=== PATIENT | male | born 1935 | race Caucasian/White ===

== ENCOUNTER 2024-12-12 12:07 | Emergency (ER) | payer OTHER ==
--- OUTSIDE RECORDS SUMMARY | 2024-12-12 12:12 | XMS REPORT | Continuity of Care Document ---
Author Name Unknown Address [address] [place] [address] [facility] Address 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 Name Role Phone Kraig JARAMILLO, Melissa Primary Care Physician [phone] Yaima Harkins MD, Stewart Willson Attending Clinic janette Jessi Bettencourt MD Attending Clinician [phone] Jamel Chau MD Attending Clinician [phone] JAMEL CHAU Attending Clinician Jennifer Bettencourt MD, Jessi Roberts Admitting Clinician [phone] JESSI BETTENCOURT Admitting Clinician Unavailable Payers Payer Name Policy Type Policy Number Effective Date Expirati on Date Source [employer] MEDICARE PPO [id number] 1 00:00:00 [employer] MED[employer]ARE ADVANTAGE Medicare [id number] 2023 00:00:00 Problems Condition Name Condition Details Condition Category Status Onset Date Resolution Date Last Treatment Date Treating Clinician Comments Source Subdural hematoma Subdural hematoma Disease Active 12-03 00:00: 00 Delphine Emmanuel Social History Social Habit Start Date Stop Date Quantity Comments Source Gender identity Raghav Emmanuel Sexual orientation Yani Emmanuel History of Social function 2024-12-04 00:00:00 2024-12-04 00:00:00 Yusuf Emmanuel Smoking Status Start Date Stop Date Source Never smoked tobacco Delphine Emmanuel Medications Ordered Medication Name Filled Medication Name Start Date Stop Date Current Medication? Ordering Clinician Indication Dosage Frequency Signature (SIG) Comments Components Source docusate sodium (Colace) capsule 100 mg docusate sodium (Colace) capsule 100 mg 12-07 09:00: 00 Yes 112 100mg Q.5D 100 mg, Oral, 2 times daily, First dose on 12/07/24 at 0900 Delphine Emmnauel losartan (Cozaar) 25 MG tablet losartan (Cozaar) 25 MG tablet 12-07 00:00: 00 01-06 23:59 :00 No 25mg QD Take 1 tablet by mouth 1 time each day for 30 doses. Delphine Emmanuel finasteride (Proscar) 5 MG tablet finasteride (Proscar) 5 MG tablet 12-06 19:39: 29 12-06 00:00 :00 No 5mg QD Take 5 mg by mouth 1 time each day. Do not crush, chew, or split. Delphine Emmanuel sertraline (Zoloft) 25 MG tablet sertraline (Zoloft) 25 MG tablet 12-06 19:39: 29 12-06 00:00 :00 No 25mg QD Take 25 mg by mouth 1 time each day. Delphine Emmanuel aspirin (Vazalore) 81 MG capsule aspirin (Vazalore) 81 MG capsule 12-06 19:39: 29 12-06 00:00 :00 No 81mg QD Take 81 mg by mouth 1 time each day. Do not crush or chew. Delphine Emmanuel cholecalcif walt (Vitamin D-3) 50 MCG (1999 UT) tablet cholecalcif walt (Vitamin D-3) 50 MCG (1999 UT) tablet 12-06 19:39: 29 12-06 00:00 :00 No 1{tbl} QD Take 1 tablet by mouth 1 time each day. Delphine Emmanuel traZODone (Desyrel) 100 MG tablet traZODone (Desyrel) 100 MG tablet 12-06 19:39: 29 12-06 00:00 :00 No 100mg Take 100 mg by mouth at bedtime. Delphine Emmanuel tamsulosin (Flomax) 0.4 MG 24 hr capsule tamsulosin (Flomax) 0.4 MG 24 hr capsule 12-06 19:39: 26 Yes 1858 .4mg QD Take 0.4 mg by mouth 1 time each day. Delphine Emmanuel furosemide (Lasix) 20 MG tablet furosemide (Lasix) 20 MG tablet 12-06 19:39: 26 Yes 81 20mg QD Take 20 mg by mouth 1 time each day. Hold for SBP <100 or DBP <60 Delphine Emmanuel levETIRAcet am (Keppra) 750 MG tablet levETIRAcet am (Keppra) 750 MG tablet 12-06 19:39: 26 Yes 9 750mg Q.5D Take 750 mg by mouth in the morning and 750 mg in the evening. Delphine Emmanuel Venelex ointment Venelex ointment 12-06 17:00: 00 Yes Q.5D Apply externally , 2 times daily, First dose on Mon12/06/24 at 1700, -Sacrum - Cleanse: Secura Total Foam Body Cleanser, pat dry Apply Venelex (balsam jose/nora r oil) to wound bed No Allevyn's- No Diapers-NO EPC please-use green ellie pad for incontinen ce Cleanse/dr y/reapply - BID -incontine nce care Delphine Emmanuel levETIRAcet am (Keppra) tablet 500 mg levETIRAcet am (Keppra) tablet 500 mg 12-06 17:00: 00 12-11 16:59 :00 No 500mg Q.5D 500 mg, Oral, 2 times daily, First dose on Mon12/06/24 at 1700, For 10 doses Delphine Emmanuel bisacodyl (Dulcolax) EC tablet 10 mg bisacodyl (Dulcolax) EC tablet 10 mg 12-06 08:00: 00 12-06 08:22 :00 No 10mg 10 mg, Oral, Once, On Mon12/06/24 at 0800, For 1 dose, Do not give within 1 hour of antacids, milk, or dairy products. Do not crush, chew, or split. Delphine Emmanuel Balsam [place] Oil (Venelex) ointment Balsam [place] Oil (Venelex) ointment 12-06 00:00: 00 01-05 23:59 :00 No 911 1[in_us ] Q.5D Apply 1 inch topically in the morning and 1 inch in the evening. Delphine Emmanuel acetaminoph en (Tylenol) 325 MG tablet acetaminoph en (Tylenol) 325 MG tablet 12-06 00:00: 00 12-16 23:59 :00 No 650mg Q6H Take 2 tablets by mouth every 6 hours if needed for mild pain (1-3) for up to 10 days. Delphine Emmanuel levETIRAcet am (Keppra) 500 MG tablet levETIRAcet am (Keppra) 500 MG tablet 12-06 00:00: 00 12-06 00:00 :00 No 500mg Q.5D Take 1 tablet by mouth in the morning and 1 tablet in the evening. Do all this for 10 doses. Delphine Emmanuel levETIRAcet am (Keppra) injection 500 mg levETIRAcet am (Keppra) injection 500 mg 12-05 21:00: 00 12-06 14:48 :31 No 500mg Q.5D 500 mg, Intravenou s, Every 12 hours scheduled, First dose (after last modificati on) on Mon12/05/24 at 2100, For 10 doses, Administer over 3 minutes IV push for doses up to 1500 mg. Delphine Emmanuel polyethylen e glycol (PEG) 3350 (Miralax) packet 17 g polyethylen e glycol (PEG) 3350 (Miralax) packet 17 g 12-05 09:15: 00 Yes 17g Q.5D 17 g, Oral, 2 times daily, First dose on Mon12/05/24 at 0915, Dissolve 17 g in 120 to 240 mL (4 to 8 ounces) of beverage. Delphine Emmanuel losartan (Cozaar) tablet 25 mg losartan (Cozaar) tablet 25 mg 12-05 09:15: 00 01-04 08:59 :00 No 25mg QD 25 mg, Oral, Daily, First dose on Mon12/05/24 at 0915, For 30 days Delphine Emmanuel heparin injection 5,000 Units heparin injection 5,000 Units 12-05 00:00: 00 Yes 5000U Q8H 5,000 Units, Subcutaneo us, Every 8 hours, First dose on Mon12/05/24 at 0000 Delphine Giles Epic cefepime (Maxipime) 1 g in sodium chloride 0.9 % 100 mL IVPB-MB+ cefepime (Maxipime) 1 g in sodium chloride 0.9 % 100 mL IVPB-MB+ 12-04 23:00: 00 12-11 22:59 :00 No 1g Q12H 1 g, Intravenou s, at 25 mL/hr, Administer over 4 Hours, Every 12 hours, First dose on Mon12/04/24 at 2300, For 7 days, Mini-Bag Plus bag. Break seal and mix before use, as follows: For liquid drug vials, skip to step 2. 1. Hold bag with vial down. Squeeze solution into vial until half-full. Shake to suspend drug in solution. 2. Hold bag with vial upside down. Squeeze bag to force air into vial, then release to drain suspended drug from vial into bag. 3. Repeat above until vial is empty of drug and solution is thoroughly mixed. Ensure drug is completely dissolved. Do not remove drug vial. 4. Remove port protector, attach admin set per its instructio ns, then hang container from IV pole and prime set per directions . Do not use in series connection s. 5. Ensure the vial is empty of drug and in solution, then administer medication as ordered. Use within specified BUD., Suspected Indication (Select all that apply): Urinary Tract Infection, On hold since Mon12/05/2024 at 0908 until manually unheld Delphine Emmanuel ipratropium -albuterol (Duo-Neb) 0.5-2.5 mg/3 mL nebulizer solution 3 mL ipratropium -albuterol (Duo-Neb) 0.5-2.5 mg/3 mL nebulizer solution 3 mL 12-04 21:00: 00 Yes 3mL Q.25D 3 mL, Nebulizati on, Every 6 hours RT, First dose on Mon12/04/24 at 2100 Delphine Emmanuel hydrALAZINE injection 10 mg hydrALAZINE injection 10 mg 12-04 05:51: 21 Yes 10mg Q6H 10 mg, Intravenou s, Every 6 hours PRN, high blood pressure, SBP goal <150 mmhg, Starting on Mon12/04/24 at 0551, 2nd agent Delphine Emmanuel isosorbide mononitrate ER (Imdur) 30 MG 24 hr tablet isosorbide mononitrate ER (Imdur) 30 MG 24 hr tablet 12-04 00:00: 00 Yes 662 30mg QD Take 30 mg by mouth 1 time each day. Hold for SBP <100 or DBP <60Do not crush or chew. Delphine Emmanuel acetaminoph en (Tylenol) tablet 650 mg acetaminoph en (Tylenol) tablet 650 mg 12-03 21:09: 41 Yes 650mg Q6H 650 mg, Oral, Every 6 hours PRN, mild pain (1-3), Starting on Mon12/03/24 at 2109, Max acetaminop hen = 4000mg/day (4gm/day) Delphine Emmanuel levETIRAcet am (Keppra) injection 1,000 mg levETIRAcet am (Keppra) injection 1,000 mg 12-03 21:00: 00 12-05 09:03 :09 No 1000mg Q.5D 1,000 mg, Intravenou s, Every 12 hours scheduled, First dose (after last modificati on) on Mon12/03/24 at 2100, For 7 days, Administer over 3 minutes IV push for doses up to 1500 mg. Delphine Emmanuel sodium chloride 0.9 % infusion sodium chloride 0.9 % infusion 12-03 20:45: 00 12-04 08:49 :21 No 50mL/h 50 mL/hr, Intravenou s, Continuous , Starting on Mon12/03/24 at 2045 Delphine Emmanuel magnesium sulfate IVPB 2 g magnesium sulfate IVPB 2 g 12-03 20:43: 41 12-06 10:41 :43 No 2g 2 g, Intravenou s, Administer over 4 Hours, As needed, Abnormal Lab Result, FOR ICU USE ONLY, Starting on Mon12/03/24 at 2042, For magnesium 1.6 to 1.8 mg/dL: Replace with Mg Sulfate 2 grams IVPB over 4 hours x 1 dose. For magnesium 1.9 to 2.3 mg/dL(in CV surgery patients only): Replace with Mg Sulfate 2 grams IVPB over 4 hours X 1 dose> For magnesium </= 1.5 mg/dL: Replace with Mg Sulfate 2 grams IVPB over 4 hours X 2 doses. Notify MD if magnesium </= 1.1 mg/dL Recheck Magnesium level 2 hours after Magnesium replacemen t complete. Delphine Emmanuel sennosides (Senokot) tablet 8.6 mg sennosides (Senokot) tablet 8.6 mg 12-03 18:45: 00 Yes 1{tbl} Q.5D 8.6 mg (1 tablet), Oral, 2 times daily, First dose on Mon12/03/24 at 1845 Delphine Emmanuel sodium chloride (NS) 0.9 % flush 10 mL sodium chloride (NS) 0.9 % flush 10 mL 12-03 18:45: 00 Yes 10mL Q12H 10 mL, Intravenou s, Every 12 hours, First dose on Mon12/03/24 at 1845, Administer at least once every 12 hours Delphine Emmanuel famotidine (Pepcid) tablet 20 mg famotidine (Pepcid) tablet 20 mg 12-03 18:45: 00 12-05 07:31 :30 No 20mg QD 20 mg, Oral, Daily, First dose on Mon12/03/24 at 1845 Delphine Emmanuel insulin regular (HumuLIN R,NovoLIN R) injection 2-8 Units insulin regular (HumuLIN R,NovoLIN R) injection 2-8 Units 12-03 18:43: 01 Yes 2U Q6H 2-8 Units, Subcutaneo us, Every 6 hours PRN, high blood sugar, Starting on Mon12/03/24 at 1843, For BG < 70, follow hypoglycem ia protocol and notify ordering provider. If patient can eat or drink, give oral carbohydra te as ordered per hypoglycem ia protocol. If patient NPO, give dextrose 50 % IV as ordered per hypoglycem ia protocol. If NPO and no IV access, give glucagon IM as ordered per hypoglycem ia protocol. Check BG every 15 minutes and repeat treatment if continued BG < 80., Correction Insulin Dosing: (DO NOT CHANGE DEFAULT SELECTION/ VALUES): Starting, BG < 70 instructio ns: Follow Hypoglycem ia Orders, BG 70-149 instructio ns: No Dose Needed, BG 150-199: 2, BG 200-249: 4, BG 250-299: 6, BG >/= 300: 8, BG > 300 instructio ns: Contact Provider Delphine Giles Epic glucagon injection 1 mg glucagon injection 1 mg 12-03 18:42: 53 Yes 1mg 1 mg, Intramuscu lar, As needed, For BG < 70 mg/dL if no IV access and patient is either Unconsciou s, unable to swallow or npo, Starting on Mon12/03/24 at 1842, For BG < 70 mg/dL if no IV access and patient is either Unconsciou s, unable to swallow or npo and notify MD. Delphine Giles Epic dextrose 50 % solution 25 g dextrose 50 % solution 25 g 12-03 18:42: 53 Yes 25g 25 g, Intravenou s, As needed, other, if Blood Glucose </= 50 mg/dL, Starting on Mon12/03/24 at 1842, If BG </=50 mg/dL, give 50 mL of D50W IV push STAT and notify MD. Delphine Giles Epic dextrose 50 % solution 12.5 g dextrose 50 % solution 12.5 g 12-03 18:42: 53 Yes 12.5g 12.5 g, Intravenou s, As needed, low blood sugar, if Blood Glucose 51- 69 mg/dL, Starting on Mon12/03/24 at 1842, For BG 51-69 mg/dL and patient UNCONSCIOU S OR UNABLE TO SWALLOW OR NPO: Give 25 mL of D50W IV push and notify MD. Delphine Emmanuel ipratropium -albuterol (Duo-Neb) 0.5-2.5 mg/3 mL nebulizer solution 3 mL ipratropium -albuterol (Duo-Neb) 0.5-2.5 mg/3 mL nebulizer solution 3 mL 12-03 18:42: 05 Yes 3mL Q4H 3 mL, Nebulizati on, Every 4 hours PRN, wheezing, Starting on Mon12/03/24 at 1842 Delphine Emmanuel naloxone (Narcan) injection 0.04 mg naloxone (Narcan) injection 0.04 mg 12-03 18:42: 05 Yes .04mg 0.04 mg, Intravenou s, As needed, opioid reversal, every 2 mins PRN for Narcotic Reversal, Starting on Mon12/03/24 at 1842, For 8 doses, Give up to 8 doses of 0.04 mg as needed to reverse over sedation. Keep available for immediate use. Call ordering physician STAT. (Dilute 0.4 mg/mL in 9 mL of saline) Delphine Emmanuel ondansetron (Zofran) injection 4 mg ondansetron (Zofran) injection 4 mg 12-03 18:42: 05 Yes 4mg Q6H 4 mg, Intravenou s, Every 6 hours PRN, nausea, vomiting, Starting on Mon12/03/24 at 1842 Delphine Emmanuel labetalol injection 10 mg labetalol injection 10 mg 12-03 18:42: 05 Yes 1317 10mg 10 mg, Intravenou s, Every 15 min PRN, high blood pressure, Starting on Mon12/03/24 at 1842, Administer IV Push over 2 minutes. May give up to 3 consecutiv e doses. If goal BP is not achieved after 3 consecutiv e doses, Notify MD. (Refer to SBP goal documented in Vital Sign/BP Parameters ? order). Recheck Vitals Q15 minutes x 4. Do not administer if HR < 55 BPM., Indication s: Cerebral Hemorrhage Delphine Emmanuel levETIRAcet am (Keppra) injection 500 mg levETIRAcet am (Keppra) injection 500 mg 12-03 17:55: 00 Yes 500mg 500 mg, Intravenou s, Once, On Mon12/03/24 at 1755, For 1 dose, Administer over 3 minutes IV push for doses up to 1500 mg. Delphine Giles Epic iohexol (OMNIPaque) 350 MG/ML injection 100 mL iohexol (OMNIPaque) 350 MG/ML injection 100 mL 12-03 17:16: 11 12-03 17:16 :00 No 100mL 100 mL, Intravenou s, Once in imaging, Starting on Mon12/03/24 at 1716, For 1 dose Delphine Giles Epic sodium chloride (NS) 0.9 % flush 10 mL sodium chloride (NS) 0.9 % flush 10 mL 12-03 17:13: 34 Yes 10mL [Order 1 Start] Name: Insert peripheral IV Signed Summary: Once, On Mon12/03/24 at 1714, For 1 occurrence [Order 1 End] [Order 2 Start] Name: Saline lock IV Signed Summary: Once, On Mon12/03/24 at 1714, For 1 occurrence [Order 2 End] [Order 3 Start] Name: sodium chloride (NS) 0.9 % flush 10 mL Signed Summary: 10 mL, Intravenou s, As needed, line care, Starting on Mon12/03/24 at 1713 [Order 3 End] Delphine Giles Epic sodium chloride (NS) 0.9 % flush 10 mL sodium chloride (NS) 0.9 % flush 10 mL 12-03 17:13: 34 12-06 07:51 :49 No 10mL 10 mL, Intravenou s, As needed, line care, Starting on Mon12/03/24 at 1713 Delphine Giles Epic iohexol (OMNIPaque) 350 MG/ML injection 60 mL iohexol (OMNIPaque) 350 MG/ML injection 60 mL 12-03 17:05: 06 Yes 60mL 60 mL, Intravenou s, Once in imaging, Starting on Mon12/03/24 at 1705, For 1 dose Delphine Giles Epic metoprolol tartrate (Lopressor) 25 MG tablet metoprolol tartrate (Lopressor) 25 MG tablet 12-03 00:00: 00 Yes 87 25mg Q.5D Take 25 mg by mouth in the morning and 25 mg in the evening. Hold for SBP <100 or DBP and or HR <60. [facility] atorvastati n (Lipitor) 40 MG tablet atorvastati n (Lipitor) 40 MG tablet 12-03 00:00: 00 Yes 1779 40mg Take 40 mg by mouth at bedtime. [facility] nitrofurant oin, macrocrysta l-monohydra te, (Macrobid) 100 MG capsule nitrofurant oin, macrocrysta l-monohydra te, (Macrobid) 100 MG capsule 12-03 00:00: 00 12-06 00:00 :00 No 100mg Q.5D Take 100 mg by mouth in the morning and 100 mg in the evening. [facility] ibuprofen 600 MG tablet ibuprofen 600 MG tablet 12-02 00:00: 00 12-06 00:00 :00 No 600mg Q6H Take 600 mg by mouth in the morning and 600 mg at noon and 600 mg in the evening and 600 mg before bedtime. Alternate with Tylenol. [facility] acetaminoph en (Tylenol) 325 MG tablet acetaminoph en (Tylenol) 325 MG tablet 12-02 00:00: 00 12-06 00:00 :00 No 2{tbl} Q6H Take 2 tablets by mouth in the morning and 2 tablets at noon and 2 tablets in the evening and 2 tablets before bedtime. Alternate with Ibuprofen. [facility] Vital Signs Vital Name Observation Time Observation Value Comments S ource Respiratory rate 2024-12-06 17:30:00 22 /min [facility] Systolic blood pressure 2024-12-06 17:30:00 165 mm[Hg] [facility] Diastolic blood pressure 2024-12-06 17:30:00 72 mm[Hg] [facility] Heart rate 2024-12-06 17:30:00 72 /min [facility] Body temperature 2024-12-06 12:39:07 36.94 Alexus [facility] Oxygen saturation in Arterial blood by Pulse oximetry 2024-12-06 08:30:00 96 /min [facility] Her caceres [facility] Body weight 2024-12-05 14:18:00 85.3 kg Raghav kate [facility] BMI 2024-12-05 14:18:00 26.24 kg/m2 Raghav [facility] Body height 2024-12-05 14:18:00 180.3 cm Raghav [facility] Respiratory rate 2024-12-06 17:30:00 22 /min [facility] Systolic blood pressure 2024-12-06 17:30:00 165 mm[Hg] [facility] Diastolic blood pressure 2024-12-06 17:30:00 72 mm[Hg] [facility] Heart rate 2024-12-06 17:30:00 72 /min [facility] Body temperature 2024-12-06 12:39:07 36.94 Alxeus [facility] Oxygen saturation in Arterial blood by Pulse oximetry 2024-12-06 08:30:00 96 /min [facility] Her caceres [facility] Body weight 2024-12-05 14:18:00 85.3 [facility] 2024-12-05 14:18:00 26.24 kg/m2 Raghav [facility] Body height 2024-12-05 14:18:00 180.3 cm [facility] Procedures Procedure Date / Time Performed Performing Clinician Source UA WITH CULTURE IF INDICATED 2024-12-06 12:29:00 Santana Flaherty [facility] COMPREHENSIVE METABOLIC PANEL 2024-12-06 01:35:00 Thu Davenport [facility] COMPLETE BLOOD COUNT W/DIFF AND PLATELET 2024-12-06 01:35:00 Thu [place] Mattie [facility] COMPLETE BLOOD COUNT 2024-12-06 01:35:00 Thu Dav[place]port [facility] AUTOMATED DIFFERENTIAL 2024-12-06 01:35:00 Thu [place] Mattie [facility] TRANSTHORACIC ECHO (TTE) COMPLETE 2024-12-05 15:10:00 Kathleen Ivory [facility] POC GLUCOSE UNSOLICITED RESULTS 2024-12-05 07:40:00 Jessi Bettencourt [facility] COMPREHENSIVE METABOLIC PANEL 2024-12-05 00:27:00 Thu [place] [facility] MAGNESIUM LEVEL 2024-12-05 00:27:00 Latisha Saxena [facility] PHOSPHORUS LEVEL 2024-12-05 00:27:00 Estefani Saxena [facility] COMPLETE BLOOD COUNT W/DIFF AND PLATELET 2024-12-05 00:27:00 [facility]LO[facility] 2024-12-05 00:27:00 Thu [place] [facility] AUTOMATED DIFFERENTIAL 2024-12-05 00:27:00 Thu [place] Mattie [facility] UA with culture if indicated 2024-12-05 00:00:00 [facility] XR CHEST 1 VIEW 2024-12-04 21:57:00 [facility] POC GLUCOSE UNSOLICITED RESULTS 2024-12-04 13:05:00 Jessi Bettencourt [facility] THROMBOELASTOGRAPH RAPID 2024-12-04 12:54:00 Corry rnipragada, Rohit Yousif [facility] ADE AURIS FUNGAL CULTURE SURVEILLANCE 2024-12-04 12:53:00 Corryrnipraggrupo, Rohit Yousif [facility] WOUND OSTOMY EVAL AND TREAT 2024-12-04 11:05:12 Jessi Milner ms [facility] POC GLUCOSE UNSOLICITED RESULTS 2024-12-04 08:15:00 Jessi Bettencourt [facility] POC GLUCOSE UNSOLICITED RESULTS 2024-12-04 01:02:00 Jessi Bettencourt [facility] CALCIUM LEVEL IONIZED WHOLE BLOOD 2024-12-04 01:01:00 Danny Sax[facility]achanning home [facility] HEMOGLOBIN A1C 2024-12-04 00:50:00 Latisha Saxenaa [facility] COMPLETE BLOOD COUNT W/DIFF AND PLATELET 2024-12-04 00:49:00 Thu [place] [facility] COMPLETE BLOOD COUNT 2024-12-04 00:49:00 Issac, Thu [facility] AUTOMATED DIFFERENTIAL 2024-12-04 00:49:00 Thu [place] [facility] BASIC METABOLIC PANEL 2024-12-04 00:45:00 Sonia Saxenabassem [facility] MAGNESIUM LEVEL 2024-12-04 00:45:00 Latisha Saxena [facility] PHOSPHORUS LEVEL 2024-12-04 00:45:00 SaxenaEstefania [facility] THYROID STIMULATING HORMONE W/ REFLEX FREE T4 2024-12-04 00:45:00 Saxena, Soniakamronminda [facility] PT AND PTT 2024-12-04 00:45:00 Teofilo [place] [facility] CT BRAIN WO IV CONTRAST 2024-12-03 23:33:10 Eagle Patton [facility] POC GLUCOSE UNSOLICITED RESULTS 2024-12-03 22:24:00 Jessi Bettencourt [facility] HEPATIC FUNCTION PANEL 2024-12-03 21:55:00 Colleen s, Soniazstefanominda [facility] HEMOGLOBIN A1C 2024-12-03 21:55:00 Saxena, Estefanijamison rinaldia [facility] TROPONIN I HIGH SENSITIVITY (SINGLE ORDER) 2024-12-03 21:55:00 Saxena, Franciscominda [facility] ECG 12-LEAD 2024-12-03 18:10:00 Camila Peters [facility] BASIC METABOLIC PANEL 2024-12-03 18:07:00 Ynes Peters [facility] HEPATIC FUNCTION PANEL 2024-12-03 18:07:00 Colleen s, Soniazviminda [facility] CREATINE KINASE (CK TOTAL) 2024-12-03 18:07:00 Camila Peters [facility] BLOOD GAS, VENOUS 2024-12-03 18:07:00 Camila Peters [facility] COMPLETE BLOOD COUNT W/DIFF AND PLATELET 2024-12-03 18:07:00 Camila Peters [facility] PROTIME-INR 2024-12-03 18:07:00 Camila Peters [facility] PTT 2024-12-03 18:07:00 Camila Peters [facility] TROPONIN I HIGH SENSITIVITY (SINGLE ORDER) 2024-12-03 18:07:00 Hemanth Franciscomilly Clancy [facility] THROMBOELASTOGRAPH RAPID 2024-12-03 18:07:00 Liam judysae Eagle Pichardo [facility] COMPLETE BLOOD COUNT 2024-12-03 18:07:00 Jyothi Peters [facility] AUTOMATED DIFFERENTIAL 2024-12-03 18:07:00 Demetrio Peters [facility] XR CHEST 1 VIEW 2024-12-03 17:46:08 Camila Peters [facility] CT BRAIN WO IV CONTRAST 2024-12-03 17:14:28 Raquel Mitchell [facility] CT ANGIOGRAM BRAIN NECK STROKE 2024-12-03 17:14:28 Troy Griffin [facility] POC GLUCOSE UNSOLICITED RESULTS 2024-12-03 16:54:00 Stewart Barreto [facility] ABORh Blood Type and Antibody Screen 2024-12-03 00:00:00 [facility] Comprehensive Metabolic Panel [facility] Complete Blood Count w/Diff and Platelet [facility] Ade Auris Fungal Culture Surveillance [facility] Plan of Care Planned Activity Planned Date Details Comments Source Procedure 2025-01-02 00:00:00 POCT Glucose [facility] Encounters Start Date/Time End Date/Time Encounter Type Admission Type Attending [facility] Care Facility Care Department Encounter ID Source 2024-12-17 12:30:00 2024-12-17 12:30:00 Outpatient [facility] [id number] [facility] 2024-12-03 16:59:00 2024-12-06 18:00:00 Hospital Encounter Stewart Barreto John R Torres, Luis Francisco [facility] [id number] [facility] 2024-12-03 16:59:00 2024-12-06 18:00:00 Inpatient Emergency JAMEL CHAU [facility] General Medicine [id number] [facility] Results Test Description Test Time Test Comments Results Result Co mments Source [facility] 12 [id number] 17:26:13* Test Item Value Reference Range Interpretation Comme nts Ventricular Rate (test code = 7684750090) BPM Atrial Rate (test code = 3092519766) BPM NC Interval (test code = 1409681128) 138 ms QRS Duration (test code = 5863681146) 84 ms QT/QTc (test code = 6831681634) 436 ms QTc Calculation (test code = 2312770427) 436 ms [place] (test code = 5262982415) degrees [place] (test code = 9384739592) degrees [place] (test code = 6136659892) degrees IMP (test code = IMP) PXN (test code = PXN) [facility] [id number] 11:41:56* Test Item Value Reference Range Interpretation Comme nts POC Glu (test code = 6801111831) 112 mg/dL 70-99 H POC Performing Location (sondra t code = 9326755741) J7 NSICU Lab Interpretation (test cod e = 74287-7) Abnormal [facility] [id number] 21:25:04* Test Item Value Reference Range Interpretation Comme nts POC Glu (test code = 6345679531) 89 mg/dL 70-99 POC Performing Location (sondra t code = 3623738759) J5 NEURO [facility] [id number] 08:26:11* Test Item Value Reference Range Interpretation Comme nts POC Glu (test code = 1499718735) 119 mg/dL 70-99 H POC Performing Location (sondra t code = 9302603770) LAB Lab Interpretation (test cod e = 35963-1) Abnormal [facility]2025-04-23 01:04:32* Test Item Value Reference Range Interpretation Comme nts POC Glu (test code = 3030390038) 118 mg/dL 70-99 H POC Performing Location (sondra t code = 7574562367) J7 NSICU Lab Interpretation (test cod e = 62394-9) Abnormal [facility] [id number] 22:25:24* Test Item Value Reference Range Interpretation Comme nts POC Glu (test code = 9392032703) 120 mg/dL 70-99 H POC Performing Location (sondra t code = 9391602054) J7 NSICU Lab Interpretation (test cod e = 65718-3) Abnormal [facility] [id number] 16:56:14* Test Item Value Reference Range Interpretation Comme nts POC Glu (test code = 3327668507) 117 mg/dL 70-99 H POC Performing Location (sondra t code = 8035968330) H1 ER Lab Interpretation (test cod e = 11837-4) Abnormal [facility] Consult Notes Date/Time Note Provider Source 2024-12-04 14:11:51 Neurology Consults Progress Note Interim Events NAEON. Past Medical History He has a past medical history of COPD (chronic obstructive pulmonary disease) ([facility]) and SDH (subdural hematoma) ([facility]) (11/29/2024). Surgical History He has no past surgical history on file. Social History He reports that he has never smoked. He does not have any smokeless tobacco history on file. No history on file for alcohol use and drug use. Allergies Patient has no known allergies. Medications No medications prior to admission. Review of Systems Neurological Exam Physical Exam General: well nourished HEENT: NCAT, anicteric sclera, posterior pharynx clear, mucus membranes moist CV: regular rate, intact peripheral pulses Pulm: breathing comfortably, no wheezing, symmetric chest expansion Abd: soft, non-tender, non-distended Ext: skin clear, no rashes, no edema Neuro Exam: A&Ox2 (self, place), good concentration; Language: intact fluency, comprehension, naming, and repetition Speech: no dysarthria CN: PERRL, 3 mm BL, EOMI, no nystagmus, full VF; no facial asymmetry, facial sensation intact; auditory acuity intact; tongue midline, palate elevates symmetrically : Motor: Antigravity with no drift in all extremities Sensory: Intact to light touch equally on both sides, no extinction Coordination: no dysmetria on FTN or HTS bilaterally Gait: deferred Last Recorded Vitals Blood pressure (!) 166/68, pulse 74, temperature 36.4 ?C (97.5 ?F), temperature source Axillary, resp. rate 20, height 1.803 m (5' 11"), weight 85.3 kg (188 lb 0.8 oz), SpO2 97%. Assessment & Plan Subdural hematoma (HCC) Moderate malnutrition (CMS/HCC) (HCC) Oskar Mendoza is an 89yo male with pmh of CAD, COPD, Afin not on Eliqiuis, and recent subdural hematoma for which he was hospitalized at [facility] and discharged yesterday. He presented as a code stroke for left sided weakness and left facial droop. On arrival NIH of 2 for age/month, otherwise exam normal. CT w/ hyperattenuating right holohemispheric subdural hematoma and CTA w/no LVO. TNK deferred given hematoma. IAT deferred as no LVO. NSGY was consulted given concern for acute on chronic hematoma. No concern for acute ischemic stroke at this time. Patient has returned to baseline at this point. Recommendations: -No EEG necessary at this time -Keppra dosing per primary team Patient seen with attending Dr. Card. Neurology will sign off at this time. Nan Martinez MD Psychiatry PGY-1 Cosigned by Graham Card MD at 12/04/2024 6:27 PM CDT Associated attestation - Graham Card MD - 12/04/2024 6:27 PM CDT I have reviewed the documented history, ROS, physical exam, and decision making and agree. See my attestation to the consult note dated 12/03/24. Graham Card MD Psychiatry [facility] 2024-12-04 13:30:00 Spiritual Care Subjective Milk Receiver provided compassionate presence. Patient's Jexlizja-gw-Zcr and Friend were at bedside. Yyurtimg-sw-Rwr requested prayer (for peace), which Milk Receiver provided. Yolkjnlk-yx-Xga expressed gratitude to Milk Receiver for visit and support. Milk Receiver provided associate media planner education and encouraged reaching out if additional emotional and/or spiritual support was needed. Milk Receiver then departed with a word of blessing and assurance of continued support. Reason For Visit Care Recipient: Family Time spent: 15 minutes Reason for Visit: Admission request Interventions Relationship Building Interventions: Provided compassionate presence, Listened with empathy Exploration Interventions: Explored emotional needs and resources, Explored spiritual needs and resources Empowerment Interventions: Provided associate media planner education Ritual Interventions: Provided prayer Outcomes Expressed: Gratitude Expressed gratitude: Observed [place] connected with the transcendent: Observed Identified: Hopes Idenitifed hopes: Observed Assessment Spiritual Needs: Seeks peace Spiritual Resources: Marissa/trust Relational Resources: Family Plan Follow-up: No follow-up warranted at this time [facility] Pastoral Care [facility] 2024-12-04 10:50:00 Spiritual Care Subjective Milk Receiver attempted visit. However, Patient was unavailable. Patient's Doctor was just outside of the room. Milk Receiver visited with Doctor. Patient had a daughter and son who had visited, but had not seen them since the previous day. Candy Attendant services will be available for emotional and spiritual support. Call [phone]. Reason For Visit Care Recipient: Patient not available Time spent: Other (Comment) (5 minutes) Reason for Visit: Admission request [facility] 2024-12-04 07:19:30 Associated Order(s): IP SCREENING REFERRAL TO NUTRITION SERVICES NUTRITION ASSESSMENT - ADULT Unit: NSICU Reason for RD Encounter: Screening Reason : Pressure injury Findings Nutrition Diagnosis: Nutrition Diagnosis: Inadequate oral intake related to recent surgery and decreased ability to consume sufficient energy as evidenced by recent diet advancement. *Malnutrition Diagnosis: Moderate malnutrition (at minimum as exam/nutritional hx limited) Related To: Chronic illness As Evidenced By: Mild muscle loss, Mild fat loss Interventions and Recommendation: PO diet as tolerated. If meal intakes <50-70%, may consider adding oral supplement to assist nutritional intakes. If warranted, consider WC consultation for noted PI. If SII or greater is confirmed- add Christiano BID to assist with wound healing. Consider adding miralax to bowel regimen if warranted. NUTRITION RISK: Moderate, in 5-7 days Next Date for Nutrition Services Follow Up: 12/11/24 Communication : RN Primary team Rounded with multidisciplinary team Current Nutrition: Dietary Orders (From admission, onward) Start Ordered 12/04/24 0804 Adult Diet Regular Diet effective now Question: Diet type Answer: Regular 12/04/24 0803 Orderered Tube Feeds and Supplements Medication Dose Route Frequency Provider Last Rate Last Admin None PO/EN/PN Intakes: No data found. Nutrition Visit Information: 12/04- on visit, pt woke with name call. Able to respond to stating he is doing well but then fell back asleep and couldn't wake for further nutrition interview. Observed mild wasting in upper extremities. Limited/no other wt hx per chart review to assess possible changes endorsed. Noted pt did transfer from ID. No BM since admit but <24 hr admission. Only on senna bowel regimen. Initially pt was NPO this am with failing bedside nursing swallow. TIRE DESIGN ENGINEER consulted but later passed repeat bedside swallow, diet advanced to regular. PI documented to gluteal fold (Stage 1- Blanchable erythema/red). No WC eval /consult in place. Refer to recs above. Anthropometrics: Height: 180.3 cm (5' 11") Height Method: (per chart review) Weight: 85.3 kg, 188 lbs Weight Method: Bed scale Body mass index is 26.23 kg/m?. Cushman body weight: 75.3 kg (166 lb 0.1 oz) Adjusted ideal body weight: 79.3 kg (174 lb 13.2 oz) Wt Readings from Last 10 Encounters: 12/03/24 85.3 kg (188 lb 0.8 oz) Per chart review ED encounter: 11/28/24- 187 lbs Estimated Nutrition Needs: Calculated Energy Needs Using Equations Height: 1.803 m (5' 11") Weight Used for Equation Calculations: 78.2 kg (172 lb 6.4 oz) Energy Equation Used: Rule of thumb (kcal/kg) Energy Lower Range: 25 (kcal/kg) Energy Upper Range: 30 (kcal/day) Energy Needs Lower Range: 1955 kcal/day (kcal/day) Energy Needs Upper Range: 2346 kcal/day Temp: 36.5 ?C (97.7 ?F) Estimated Protein Needs (g/kg) Protein Lower Range: 1.2 (g/kg) Protein Upper Range: 1.5 (g/day) Protein Lower Range: 94 g/day (g/day) Protein Upper Range: 117 g/day Fluid Needs Fluid Needs Method: Or per MD (mL/kg) Fluid Needs: 25 (mL/day) Fluid Needs (Calculated): 1955 mL/day Nutrition Physical Findings per clinical safety specialist: Orientation Level: Disoriented to time Gastrointestinal (WDL): X Abdomen Inspection: Soft; Flat Abdominal Tenderness: No guarding Bowel Sounds: All quadrants Bowel Sounds (All Quadrants): Active LUE: Full movement RUE: Full movement LLE: Full movement RLE: Full movement Wound 12/03/24 Other (Comments) Right Eye (Active) Wound 12/03/24 Pressure Injury Bilateral Gluteal fold (Active) Nutrition Focused Physical Exam - Muscles and Fat: Assessment of Muscle Status Date Assessed: 12/04/24 (limited) Episcopalian Region: Slts-al-ewygpbbm deficit: Slight depression Clavicle Bone Region: Xtuj-ym-kfyimlwf deficit: More prominent clavicle bone, less prominent muscle when palpated Assessment of Fat Status Date Assessed: 12/04/24 (limited) Orbital Region: Sdsv-lr-vqjoxftz deficit: Somewhat hollow look, slightly dark circles Cheek Region (Buccal Fat Pads): Gxjq-pf-sdtkbbyi deficit: Slight depression, somewhat sunken appearance, flat cheeks / Decrease in bounce back of fat pads Basic Information: Admitting diagnosis: Subdural hematoma (HCC) [S06.5XAA] Clinical course: 89 y.o. male with PMH of CABG 5 years ago, CAD, COPD, Afib not on Eliqiuis, and recent subdural hematoma for which he was hospitalized at [facility] and discharged (12/02) , who presented on 12/03/2024 for left sided weakness and left facial droop that was noted at his nursing facility. 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 On EMS arrival BP of 118 and glucose of 130. OSH patient conversive but slow to respond. NIH of 2 for answering month and age incorrectly. Otherwise no deficits on exam. CT with A hyperattenuating right holohemispheric subdural hematoma measuring up to 9mm thick and causing partial sulcal/ventricular effacement. CTA w/ no large vesseel occlusion, medium vessel occlusion, or severe narrowing in the head or neck.. NSGY consulted for surgical management. Admitted to NSICU for neuro monitoring and management. Medications: famotidine, 20 mg, Oral, Daily [START ON 12/05/2024] heparin, 5,000 Units, Subcutaneous, q8h iohexol, 60 mL, Intravenous, Once in imaging levETIRAcetam, 1,000 mg, Intravenous, q12h LEE ANN sennosides, 1 tablet, Oral, BID sodium chloride, 10 mL, Intravenous, q12h PRN medications: acetaminophen, bisacodyl, calcium gluconate, dextrose, dextrose, diphenhydrAMINE, glucagon, hydrALAZINE, insulin regular, ipratropium-albuterol, labetalol, magnesium sulfate, naloxone, ondansetron, potassium & sodium phosphates OR potassium & sodium phosphates, potassium chloride OR potassium chloride OR potassium chloride OR Potassium chloride, [COMPLETED] Insert peripheral IV AND [COMPLETED] Saline lock IV AND sodium chloride, sodium chloride, sodium chloride, sodium chloride, sodium phosphates 45 mmol in sodium chloride 0.9 % 100 mL IVPB Labs: Pertinent Labs : Lab Results Component Value Date Sodium Lvl 138 12/04/2024 Potassium Lvl 3.7 12/04/2024 Chloride Lvl 102 12/04/2024 CO2 Lvl 27.9 12/04/2024 BUN 25 (H) 12/04/2024 Creatinine Lvl 0.97 12/04/2024 Glucose Lvl 123 (H) 12/04/2024 POC Glu 119 (H) 12/04/2024 Lab Results Component Value Date Calcium Lvl 8.7 12/04/2024 Magnesium 1.79 12/04/2024 Phosphorus Lvl 3.3 12/04/2024 Lab Results Component Value Date Hgb A1C 5.10 12/04/2024 Review / Management: I/O 24 HRS: Intake/Output Summary (Last 24 hours) at 12/04/2024 0925 Last data filed at 12/04/2024 0800 Gross per 24 hour Intake 460 ml Output 775 ml Net -315 ml Unmeasured Stool Occurrence: 0 Monitoring and Evaluation: MONITORING AND EVALUATION: Weight changes, Skin, Digestive/abdominal assessment, Nutrition Intake : PO intake and tolerance, and Labs: BMP, Phos and Mg GOAL: >75% of estimated needs met: Registered Dietitian Zora Ramirez MS, RD, LD, [facility] Mon-Fri Pager: [phone] Weekend/On-Call Pager: [phone] [facility] 2024-12-03 20:04:43 Neurocritical Care Consultation Note Consulted by NSGY for medical mgmt History Of Present Illness Manny Willard, 89 y.o. male with PMH of CABG 5 years ago, CAD, COPD, Afib not on Eliqiuis, and recent subdural hematoma for which he was hospitalized at [facility] and discharged (12/02) , who presented on 12/03/2024 for left sided weakness and left facial droop that was noted at his nursing facility. 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 On EMS arrival BP of 118 and glucose of 130. OSH patient conversive but slow to respond. NIH of 2 for answering month and age incorrectly. Otherwise no deficits on exam. CT with A hyperattenuating right holohemispheric subdural hematoma measuring up to 9mm thick and causing partial sulcal/ventricular effacement. CTA w/ no large vesseel occlusion, medium vessel occlusion, or severe narrowing in the head or neck.. NSGY consulted for surgical management. Admitted to NSICU for neuro monitoring and management. Interval Events: Past Medical History has a past medical history of SDH (subdural hematoma) (HCC) (11/29/2024). Surgical History has no past surgical history on file. Family History No family history on file. Social History Allergies Patient has no known allergies. Home Medications (Not in a hospital admission) Review of Systems Unable to evaluate given clinical examination Physical Exam pre-admit mRS: Score 1: No significant disability despite symptoms; able to carry out all usual duties and activities NIH STROKE SCALE SCORE ON ADMISSION 1a. 1a. LOC Level of Consciousness 0-Alert 1-Drowsy 2-Stupor 3-Coma 1b. LOC Questions (Month and Age) 0-both 1-One 2-Neither 1c. LOC Commands (Open/close eyes, Art Objects Salesperson/release non-paretic hand) 0-Both 1-One 2-Neither 2. Best Gaze 0-Normal 1-Partial 2-Forced gaze 3. Visual Ma 0-No visual loss. 1-Partial hemianopia 2-Complete 3-Bilateral 4. Facial Palsy 0-None 1-Minor 2-Partial 3-Complete 5. Motor - R arm 0-No drift 1-Drift 2-Some antigravity 3-No antigravity 4-No movement 6. Motor - R leg 0-No drift 1-Drift 2-Some antigravity 3-No antigravity 4-No movement 7. Motor - L arm 0-No drift 1-Drift 2-Some antigravity 3-No antigravity 4-No movement 8. Motor - L leg 0-No drift 1-Drift 2-Some antigravity 3-No antigravity 4-No movement 9. Limb Ataxia 0-Absent 1-1limb 2-2 limbs 10. Sensory 0-Normal 1-Partial loss 2-Dense loss 11. Best Language 0-Normal 1-Mild/mod 2-Severe 3-Mute 12. Dysarthria 0-Normal 1-Mild/mod 2-Severe X-Untestable 13. Extinction and Inattention (formerly Neglect) 0-none 1-Partial 2-complete 0 TOTAL SCORE Further clinical exam documented under Impression and Plan by systems. ======= ASSESSMENT AND PLAN Murdock Echo Sapphire, 89 y.o. male with PMH of CAD, COPD, Afib not on Eliqiuis, and recent subdural hematoma for which he was hospitalized at [facility] and discharged (12/02) , who presented on 12/03/2024 for left sided weakness and left facial droop that was noted at his nursing facility. NEUROLOGIC Right traumatic holohemispheric subdural hematoma Brain compression, present on admission Neuro Exam: GCS: E4 Eyes open spontaneously, V5 Speech orientated, M6 Follows commands MS: AAO x3, following commands, speech fluent, no dysarthria, naming intact, no neglect CN: L pupil 3, R pupil 3, EOMI, VFF, face symmetric Motor: No drift, 5/5 strength throughout Coordination: FNF no dysmetria 12/03: initial CTH revealed hyperattenuating right holohemispheric subdural hematoma : CTA H/N Mild atherosclerosis. No large vessel occlusion, medium vessel occlusion, or severe narrowing in the head or neck. Rpt CTH pending at 2300 No acute neurosurgical intervention Syncope w/u including echo, orthostatic BP, and ECG Keppra 1000 mg every 12 hours given transient symptoms concerning for seizure PT/OT/TIRE DESIGN ENGINEER as indicated ======= CARDIOVASCULAR Essential hypertension on admission Afib CAD CV Exam: RRR Heart Rate: [56-73] 56 Resp: [17-18] 17 BP: (112-124)/(55-72) 124/57 VS Parameters: MAP>65, SBP<150 PRN hydralazine, labetalol Home Meds: Trop ordered EKG Sinus Rhythm with sinus arrhythmia TTE ordered ======= PULMONARY Pulm Exam: CTAB ABG on NC, wean to room air for spO2>94% CXR ordered ======= GASTROINTESTINAL GI Exam: soft, non-distended, present bowl sounds Nutrition: Current Order: NPO Diet GI route: PO GI ppx: Pepcid daily bowel regimen: senna, miralax last BM [facility] No results found for: "ALT", "AST", "GGT", "ALKPHOS", "BILITOT" ======= RENAL No intake or output data in the 24 hours ending 12/03/242003 Urine Output: 0mL in 24hrs mL/kg/hr (last 24hrs) Results from last 7 days Lab Units 12/03/24 1807 SODIUM mEq/L 134* POTASSIUM mEq/L 4.0 CHLORIDE mEq/L 101 CO2 mEq/L 27.5 BUN mg/dL 30* CREATININE mg/dL 1.35* CALCIUM mg/dL 9.1 ICU electrolyte replacement protocol NS 50 ml/hr while NPO no jenkins ======= INFECTIOUS DISEASE No data recorded. 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 There is a high probability of imminent or life threatening deterioration in the patient's condition during this evaluation. This is the total time spent evaluating the patient, speaking with medical staff and family, interpreting studies, discussing the case with consultants and admitting teams, retrieving data and reviewing charts, documenting the visit, and performing bundled procedures required during patient management. TIME (IN MINUTES) SPENT Day MD Day HARRY Day Total TIME (IN MINUTES) SPENT 30 Night MD 15 Night HARRY (Danny Saxena NP) 45 Night Total TOTAL OF TIME (IN MINUTES) SPENT Neurology Physician [facility] 2024-12-03 19:14:14 Stroke Consult Note Team: Chief Complaint Patient presents with Altered Mental Status Reason for Consult: Subjective: Oskar Mendoza is an 89yo male with pmh of CAD, COPD, Afin not on Eliqiuis, and recent subdural hematoma for which he was hospitalized at [facility] and discharged yesterday. He presented as a code stroke for left sided weakness and left facial droop that was noted at his nursing facility. 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 On EMS arrival BP of 118 and glucose of 130. On arrival to the hospital- patient conversive but slow to respond. NIH of 2 for answering month and age incorrectly. Otherwise no deficits on exam. CT with A hyperattenuating right holohemispheric subdural hematoma measuring up to 9mm thick and causing partial sulcal/ventricular effacement. CTA w/ no large vesseel occlusion, medium vessel occlusion, or severe narrowing in the head or neck. TNK deferred given hematoma. IAT deferred as no LVO. Patient denies any headaches, any focal weakness or sensory loss. The numbers provided by EMS are both not working ([phone] and [phone]). Unable to obtain collateral. Review of Systems Constitutional: Negative for activity change, fatigue and fever. HENT: Negative for congestion. Respiratory: Negative for choking, chest tightness and shortness of breath. Cardiovascular: Negative for chest pain and palpitations. Gastrointestinal: Negative for abdominal distention and abdominal pain. Neurological: Negative for dizziness, facial asymmetry and headaches. Psychiatric/Behavioral: Negative for agitation and behavioral problems. Past Medical History: Diagnosis Date SDH (subdural hematoma) (HCC) 11/29/2024 No past surgical history on file. No family history on file. Social History Socioeconomic History Marital status: Spouse name: Not on file Number of children: Not on file Years of education: Not on file Highest education level: Not on file Occupational History Not on file Tobacco Use Smoking status: Not on file Smokeless tobacco: Not on file Substance and Sexual Activity Alcohol use: Not on file Drug use: Not on file Sexual activity: Not on file Other Topics Concern Not on file Social History Narrative Not on file Social Drivers of Health Financial Resource Strain: Not on file Food Insecurity: No Food Insecurity (11/29/2024) Received from [facility] - Food Insecurity Worried About Running Out of Food in the Last Year: No Ran Out of Food in the Last Year: No Transportation Needs: No Transportation Needs (11/29/2024) Received from [facility] - Transportation Lack of Transportation: No Physical Activity: Not on file Stress: Not on file Social Connections: Not on file Intimate Partner Violence: Not At Risk (12/03/2024) Humiliation, Afraid, Rape, and Kick questionnaire Fear of Current or Ex-Partner: No Emotionally Abused: No Physically Abused: No Sexually Abused: No Housing Stability: Not At Risk (11/29/2024) [facility]Utilities Has Housing: Yes Worried About Losing Housing: No Unable to Get Utilities: No (Not in a hospital admission) Objective: Vitals: 12/03/24 1700 12/03/24 1825 BP: 112/72 (!) 122/55 Pulse: 73 58 Resp: 18 17 SpO2: 97% Physical Exam: General: well nourished HEENT: NCAT, anicteric sclera, posterior pharynx clear, mucus membranes moist CV: regular rate, intact peripheral pulses Pulm: breathing comfortably, no wheezing, symmetric chest expansion Abd: soft, non-tender, non-distended Ext: skin clear, no rashes, no edema Neuro Exam: A&Ox1 (self), good concentration; Language: intact fluency, comprehension, naming, and repetition Speech: no dysarthria CN: PERRL, 3 mm BL, EOMI, no nystagmus, full VF; no facial asymmetry, facial sensation intact; auditory acuity intact; tongue midline, palate elevates symmetrically : Motor: Antigravity with no drift in all extremities Sensory: Intact to light touch equally on both sides, no extinction Coordination: no dysmetria on FTN or HTS bilaterally Gait: deferred NIHSS: 0- Alert, keenly responsive. 0- Answers both. 0- Follows both. 0=normal 0=Normal symmetric movement 0=No visual loss 0- No drift. 0- No drift. 0- No drift. 0- No drift. 0=Absent 0- Normal. 0=No aphasia, normal 0=Normal 0- No abnormality. Total: 2 Data: Imaging: CT head: reviewed CTA head/Neck: reviewed MRI brain: TTE: Assessment and Plan: Oskar Mendoza is an 89yo male with pmh of CAD, COPD, Afin not on Eliqiuis, and recent subdural hematoma for which he was hospitalized at [facility] and discharged yesterday. He presented as a code stroke for left sided weakness and left facial droop. On arrival NIH of 2 for age/month, otherwise exam normal. CT w/ hyperattenuating right holohemispheric subdural hematoma and CTA w/no LVO. TNK deferred given hematoma. IAT deferred as no LVO. NSGY was consulted given concern for acute on chronic hematoma. No concern for acute ischemic stroke at this time. Will obtain routine EEG to r/o any seizure activity. Recommendations: - Consult NSGY - Start Keppra 500mg BID for seizure prophylaxis - Routine EEG Neurology consult team will continue to follow. Patient discussed with stroke fellow, Dr. Chen. Troy Griffin MD Neurology PGY1 Cosigned by Graham Card MD at 12/04/2024 5:57 PM CDT Associated attestation - Graham Card MD - 12/04/2024 5:57 PM CDT I saw and evaluated the patient with the resident, participating in the sarmiento portions of the service. I reviewed the resident's note and agree with the documented findings and plan of care. 89-year-old man with a past medical history significant for traumatic holohemispheric right subdural hematoma (11/28/2024) treated at [facility] on Keppra, atrial fibrillation, CAD, who presented to [facility] on 12/03/2024 from his SNF with left-sided weakness. He is activated as a code stroke, found to have a 9 mm right holohemispheric subdural hematoma with local mass effect, decreased from 1.4 cm at outside hospital, and without large vessel occlusion or hemodynamically significant stenosis in the head or neck. This morning he has left nasolabial fold flattening and trace left upper extremity weakness in a pyramidal pattern. 1. Left sided weakness 2. Right holohemispheric traumatic subdural hematoma (9 mm) 3. Suspected seizure Given transient symptoms suspect seizure, Keppra increased to 1000 mg twice daily Additional management per primary team. Neurology will now sign off. Time: 80 minutes Graham Card MD Neurology [facility] History and Physical Notes Date/Time Note Provider Source 2024-12-03 20:01:24 NEUROSURGERY History & Physical Date: 12/03/24 Patients Name: Manny Willard Admit Date: 12/03/2024 Admitting Provider: Stewart Harkins MD;Clarice* : 1935 Service: Neurosurgery Trauma Team Age/Sex: 89 y.o. male CHIEF COMPLAINT: - Chief Complaint: Left facial droop - Consult Time: 5 PM - Evaluation Time: 5:10 PM HISTORY AND PHYSICAL: This is an 89-year-old male with history of CABG 5 years ago, A-fib, who presents with acute onset left-sided weakness and facial droop [facility], presented as a code stroke. CT head demonstrates CT head demonstrates a right 1 cm acute subdural hematoma without midline shift. CTA negative for large vessel occlusion. He was discharged yesterday from [facility] after a ground-level fall on 11/28, where he was found to have a right subdural hematoma, treated nonoperatively per record. Labs pending REVIEW OF SYSTEMS: 14 point review of systems was performed and negative except for those noted in the HPI MEDICAL HISTORY: PAST MEDICAL HISTORY: Past Medical History: Diagnosis Date SDH (subdural hematoma) ([facility]) 11/29/2024 PAST SURGICAL HISTORY: No past surgical history on file. PRE-ADMISSION MEDICATIONS: (Not in a hospital admission) ALLERGIES: No Known Allergies SOCIAL HISTORY: - Lives in penit[facility]iary FAMILY HISTORY: Family history is non-contributory to current disease process No family history on file. VITAL SIGNS: Vitals: 12/03/24 1700 12/03/24 1825 12/03/24 1930 BP: 112/72 (!) 122/55 (!) 124/57 Pulse: 73 58 56 Resp: SpO2: 97% 99% PHYSICAL EXAM: Alert and oriented x3 Left pupil 3mm and brisk Right pupil 3 mm and brisk RUE full strength RLE full strength LUE full strength LLE full strength No drift Intact neurological exam elements: EOMI No facial droop LABS: Lab Results Component Value Date Sodium Lvl 134 (L) 12/03/2024 Plt Count 288 12/03/2024 WBC 9.14 12/03/2024 Hgb 13.1 12/03/2024 PTT 30.5 12/03/2024 INR 1.07 12/03/2024 IMAGING: XR chest [address] BRAIN WO IV CONTRAST Final Result CT angiogram brain neck STROKE Final Result CT BRAIN WO IV CONTRAST (Results Pending) I have reviewed all neurosurgical imaging NEURO ASSESSMENT/PLAN: Active Problems: Patient Active Problem List Diagnosis Subdural hematoma (HCC) Assessment: 89 year old male presenting as a code stroke for left facial droop and weakness, found to have a known right acute subdural hematoma. He had a ground level fall on 11/28 and was admitted to [facility] and discharged on 12/02. He has been off thinners, has a history of CABG 5 years ago. Impression: - 1 cm right acute subdural hematoma without midline shift - CTA negative for LVO Plan: - No acute neurosurgical intervention - Repeat CT brain without contrast at 2300 - NPO for stability scan - Trauma work-up per ED, including laceration closures - Syncope w/u including echo, orthostatic BP, and ECG - Admit to [address] [place] [address] neuro ICU - White team updated - Coags/TEG pending - Keppra 1000mg BID given possible seizure - Maintain SBP<150 - Patient updated on plan of care Please call [phone] with any neurosurgery questions Eagle Garcia MD, MS Neurosurgery PGY- Cosigned by Jessi Bettencourt MD at 12/05/2024 8:01 AM CDT [facility] Notes Date/Time Note Provider Source Referral ID Status Reason Start Date Expiration Date Visits Re quested Visits Authorized [id number] 1 1 [id number] 19:39:33* Audit-C Score Answer Date of Assessment Author 0 12/03/2024 9:00 PM CDT Fabio Johnson, RN * * Calculated C-SSRS Risk Score (Lifetime/Recent) Answer Date of Assessment Author No Risk Indicated 12/03/2024 5:10 PM CDT Matt Sosa, RN * [place] Suicide Severity Rating Scale (Screener/Recent Self-Report) Question Answer Date of Assessment Author 1. Wish to be (Past 1 Month) No 025 5:10 PM CDT Matt Sosa, RN 2. Non-Specific Active Suici [place] Thoughts (Past 1 Month) No 12/03/2024 5:10 PM CDT Rickie Sosa, RN 6. Suicidal Behavior (Lifetime) No 5 5:10 PM CDT Matt Sosa, [id number] 19:39:33* Santana Flaherty, MOLDED GOODS EMBOSSING PRESS OPERATOR - 12/06/2024 2:49 PM CDT Discharge Diagnosis Subdural hematoma (HCC) Hospital Course Denver Romo, 89 y.o. male with PMH of CABG 5 years ago, CAD, COPD, Afib not on Eliqiuis, and recent subdural hematoma for which he was hospitalized at [facility] and discharged (12/02) , who presented on 12/03/2024 for left sided weakness and left facial droop that was noted at his nursing facility. 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 On EMS arrival BP of 118 and glucose of 130. OSH patient conversive but slow to respond. NIH of 2 for answering month and age incorrectly. Otherwise no deficits on exam. CT with A hyperattenuating right holohemispheric subdural hematoma measuring up to 9mm thick and causing partial sulcal/ventricular effacement. CTA w/ no large vesseel occlusion, medium vessel occlusion, or severe narrowing in the head or neck. NSGY consulted requiring no acute interventions. Patient is on a regular diet, vitals stable, labs wnl., and is medically clear for discharge back to facility. Information Provided to Patient/Family I discussed with the patient/family details of the stay. See After Visit Summary which were reviewed and shared with patient/family. Operative Procedures PerformedNA ProceduresNA Pertinent Physical Exam At Time of DischargeNeuro Exam: GCS 14 (4E, 4V, 6M) MS: AAO x1 to self and not to place or time, following commands, speech fluent, no dysarthria, naming intact, no neglect CN: L pupil 3, R pupil 3, EOMI, VFF, face symmetric Motor: No drift, 5/5 strength throughout Coordination: deferred Patient Condition at DischargeStable DispositionSNF-External [3]Back to [facility] Discharge MedicationsNew losartan (Cozaar) 25 MG tablet - 25 mg Daily Changedacetaminophen (Tylenol) 325 MG tablet - 650 mg Every 6 hours PRN - Frequency changed from "Every 6 hours" to "Every 6 hours PRN". Stoppedaspirin (Vazalore) 81 MG capsule - 81 mg Daily cholecalciferol (Vitamin D-3) 50 MCG (1999) tablet - 1 tablet Daily finasteride (Proscar) 5 MG tablet - 5 mg Daily ibuprofen 600 MG tablet - 600 mg Every 6 hours nitrofurantoin, macrocrystal-monohydrate, (Macrobid) 100 MG capsule - 100 mg 2 times daily sertraline (Zoloft) 25 MG tablet - 25 mg Daily traZODone (Desyrel) 100 MG tablet - 100 mg Nightly Continuedatorvastatin (Lipitor) 40 MG tablet - 40 mg Nightly docusate sodium (Colace) 100 MG capsule - 100 mg 2 times daily famotidine (Pepcid) 20 MG tablet - 20 mg 2 times daily furosemide (Lasix) 20 MG tablet - 20 mg Daily isosorbide mononitrate ER (Imdur) 30 MG 24 hr tablet - 30 mg Daily levETIRAcetam (Keppra) 750 MG tablet - 750 mg 2 times daily metoprolol tartrate (Lopressor) 25 MG tablet - 25 mg 2 times daily tamsulosin (Flomax) 0.4 MG 24 hr capsule - 0.4 mg Daily Test Results Pending At DischargeNA Issues Requiring Follow-UpNA Outpatient Follow-UpPlease see after visit summary after follow-up instructions. Discharge plan discussed with attending Dr. Chau.Time spent for discharge: 35 minutes Cosigned by Jamel Chau MD at 12/06/2024 4:47 PM CDT Associated attestation - Jamel Chau MD - 12/06/2024 4:47 PM CDT Attending Addendum - 12/06/24 Patient was seen and evaluated at bedside by myself, at a separate time thanthe rest of neurocritical care team. Note was written in conjunction with neurocritical care HARRY and I agree with documented findings and plan of care as stated, unless specified. Additionally, I was directly involved in the management of the patient and provided the substantive portion of this visit, including obtaining history, examining the patient, reviewing all labs and imaging, including the labs and imaging for the past 24hrs, and medical decision-making. [place] [id number] 19:39:33* Sofia Begum OT - 12/06/2024 2:12 PM CDT Treatment Session Note Patient Name: Denver Romo Today's Date: 12/06/2024 Preferred Language: Namibian Assessment & Plan Pt will benefit from further skilled OT services to increase independence when performing ADL Tasks. Pt demonstrates highly decreased performance of functional tasks and pt with decreased balance when performing functional tasks. Pt with decreased balance when sitting as well as decreased endurance and activity tolerance throughout the session. Pt with decreased performance of functional activity at this time and currently requires mod A throughout the session. Pt with mod A to perform LB dressing throughout the session and noted with decreased balance when performing standing tasks. Overall, pt with decreased performance of grooming, bathing and dressing throughout the session. OT will continue to follow while in house and address the aforementioned deficits. Thanks. Assessment: OT Assessment Results: Impaired ADL status, Impaired upper extremity range of motion, Impaired upper extremity strength, Impaired safe judgment during ADL, Impaired endurance, Impaired fine motor control, Impaired functional mobility, Impaired gross motor control, Impaired IADLs, Impaired right upper extremity, Impaired left upper extremity Prognosis: Fair Barriers to Discharge: Safety awareness Evaluation/Treatment Tolerance: Patient limited by fatigue Precautions: Plan: Treatment Plan/Goals Established with Patient/Caregiver: Yes Treatment Interventions: ADL retraining, Endurance training, Functional transfer training, Fine motor coordination activities, Neuromuscular reeducation, Orthotic/Orthotic management, UE strengthening/ROM OT Planned Treatments: Activities of Daily Living, Balance training, Cognitive training, Coordination, Therapeutic exercises, Therapeutic activities, Safety education, Neuromuscular reeducation, Mobility training OT Plan: Skilled OT OT Frequency: 3-5 times per week until discharge OT Duration: Discharge SubjectivePt reports "I would like to eat my breakfast." Pain:Pain Assessment: DVPRS (12/06/2024 1:54 PM) Pain Score: 0 (12/06/2024 1:54 PM) Pain Type: Acute pain (12/06/2024 8:37 AM) Objective OT arrives for session, Pt supine in bed upon arrival. RN oks session. Pt able to transition to the EOB with mod A. Pt able to perform standing with mod A. Pt with stable BP throughout the session. Pt able to perform self feeding tasks with mod A with cues for initiation throughout. Pt with difficulty in performing cognitive tasks throughout the session, requires mod to max A to perform sequencing tasks. Pt able to perform standing with mod A. Pt returns to sitting EOB with mod A and supine in bed with mod to max A. RN updated. Self Care (ADL):Eating Assistance: Substantial/Max assistance Grooming Assistance: Partial/Mod assistance Bathing Assistance: Partial/Mod assistance UE Dressing Assistance: Partial/Mod assistance LE Dressing Assistance: Partial/Mod assistance Toileting Assistance: Partial/Mod assistance TreatmentSelf-Care: Eating Assistance: Substantial/Max assistance Grooming Assistance: Partial/Mod assistance Bathing Assistance: Partial/Mod assistance UE Dressing Assistance: Partial/Mod assistance LE Dressing Assistance: Partial/Mod assistance Toileting Assistance: Partial/Mod assistance Bed Mobility: Bed Mobility 1Level of Assistance 1: Partial/Mod assistance Bed Mobility To/From: Roll lying on back to left, Roll lying on back to right, Supine to sit on EOB Bed Mobility 2 Level of Assistance 2: Partial/Mod assistance Bed Mobility To/From: Sitting EOB to supine, Supine to sit on EOB Transfers: Transfer 1Level of Assistance 1: Partial/Mod assistance Transfer To/From: [id number] [facility] Daily Activity:Putting on and taking off regular lower body clothing: A Lot Bathing (including washing, rinsing, drying): A Lot Toileting, which includes using toilet, bedpan or urinal: A Lot Putting on and taking off regular upper body clothing: A Little Taking care of personal grooming such as brushing teeth: A Little Eating Meals: A Little AM-PAC Daily Activity Raw Score: 15 Patient Education:Education Documentation No documentation found. Education Comments No comments found. Goals:Encounter Goals Encounter Goals (Active) Pt will perform LB dressing with min A. Start: 12/04/24 Expected End: 12/24/24 Pt will perform standing ADL tasks standing at the sink for 10 min throughout the session. Start: 12/04/24 Expected End: 12/24/24Ability to perform basic physical tasks and personal care activities. Patient demonstrates increased functional mobility and/or endurance by tolerating >10 min of OOB activities Start: 12/04/24 Expected End: 12/24/24Ability to perform basic physical tasks and personal care activities. Pt will follow 5/5 commands for greater participation in ADL Tasks. Start: 12/04/24 Expected End: 12/24/24Ability to perform basic physical tasks and personal care activities. Treatment Note: If this is the last documented treatment, then it will signify discharge from acute care prior to discharge from the therapy service and will serve as the discharge summary. Sofia Begum OT * Lesley Pederson - 12/06/2024 2:04 PM CDT 12/06/24 1402 Discharge Planning Does the patient need discharge transport arranged? Yes Has discharge transport been arranged? Yes What day is the transport expected? 12/06/24 What time is the transport expected? 1700 Discharge Planning Comments [facility] TRIP#[id number] [facility] Discharge Planning Status Complete * Griselda Delarosa LMSW - 12/06/2024 1:56 PM CDT Final Discharge Disposition: Detention Facility Detention Facility (SNF) Acceptance Received Date and Time: 12/06/24 at 1355 Received From: [facility] Name: [facility] Address: [address] [place] [address] Room Number: 302 Nursing Unit for Report: [phone] Accepting MD: Accepting Therapeutic Recreation Leader: PASRR sent to facility: Yes Medication Reconciliation sent to facility: Yes Ambulance Arrangements Pt/family's ambulance choice: [facility] ([phone]/ [phone]) LOS: BLS, ALS PCS Form Completed (for Medicare Patients): Yes Please call [facility] / [phone] for delays or any transportation issue. Pickup Date: 12/06/24 Pickup Time: Notification Patient Family Primary MD/Primary Team Primary nurse SNF packet completed and placed on chart/given to primary nurse. Please call After-Hours for discharge issues after 1700. 12/06/24 1300 Discharge Planning Patient expects to be discharged to: [facility] Expected Discharge Disposition SNF Anticipated Services at Discharge Post acute facilities (Rehab/SNF/etc) Type of Post Acute Facility Services half-way Discharge Planning Comments Leda with [facility], reports Pt can return to facility, Rm 302, call report to: [phone]. Discharge Planning Status Complete Griselda Delarosa LMSW [employer] Test Grader Case Management Department [phone])[phone] [email or web address] * Andres Geronimo RN - 12/06/2024 9:30 AM CDT Focused Wound Assessment Chief Complaint: Chief Complaint Patient presents with Altered Mental Status Location: [address] Reason for Consult: Wound ostomy eval and treat (Order #[id number]) on 12/04/24 General Assessment: Alertness alert Position in Semi Fowlers Nutrition Adequate PIP Devices none Mobility Dependent Bed Low Air Loss Mattress Continence Incontinent Wound Assessment: 1. sacrumType of injury: deep tissue injury Measurements: 2cm x 2cm x 0cm Undermining or tunneling: none Wound edges: attached, closed Wound appearance: 100% purple/maroon tissue Alesha wound: pink and intact Exudate Volume: None Type: none Odor: None Intervention/Education: The wound was assessed. Patient was positioned in Semi Fowlers. Wound treatment education was provided to the patient, caregiver, and nurse Treatment & Recommendations: -SacrumCleanse: Secura Total Foam Body Cleanser, pat dry Apply Venelex to wound bed No Allevyn's-No Diapers-NO EPC please-use green ellie pad for incontinence Cleanse/dry/reapply -BID -incontinence care -JUANY Mattress -Prevalon Boots -Tap Positional Wedge -Bilateral heels: BIDassess/cleanse heels- bath wipes/ air dry completely offload/ completely float heels -pillows or prevalon boots Reposition patient in bed or chair to offload pressureProvide offloading boots Manage moisture in skin folds Optimize Nutrition Support Surface Recommended - per hospital bed algorithm: Low Air Loss Mattress Bed to be ordered by primary nurse. Reviewed with nurse: Genesis Curran RNReviewed with provider: Santana Flaherty NP Plan - Patient will be seen weekly or prn. Primary nursing to performrecommended wound care. Nursing to notify wound care nurse of complications and concerns. Wound Care Service will continue to follow * Griselda Delarosa LMSW - 12/06/2024 8:37 AM CDT Plan A: [facility], Return Plan B: SNF 12/06/24 0800 Discharge Planning Patient expects to be discharged to: [facility] Expected Discharge Disposition SNF Anticipated Services at Discharge Post acute facilities (Rehab/SNF/etc) Discharge Planning Comments SW submitted updated clinicals to facility, [facility]. Discharge plan is for Pt to return to LTC at [facility]. Pt is not med clear on today, fevering o/n. SW to follow up as needed. Discharge Planning Status Referrals Pending Griselda Delarosa LMSW [employer] Aptitude Test Grader Case Management Department (O)[phone] [email or web address] * Eagle Garcia MD - 12/06/2024 7:27 AM CDT NEUROSURGERY PROGRESS NOTE: Date: 12/06/24 Patients Name: Denver Romo Admit Date: 12/03/2024 Admitting Provider: Jessi Bettencourt MD : 1935 Service: Neurosurgery Trauma Team Age/Sex: 89 y.o. male SUBJECTIVE: No neuro events. OBJECTIVE: Vitals: Vitals: 12/06/24 0343 12/06/24 0400 12/06/24 0422 12/06/24 0600 BP: 152/65 154/66 Pulse: 66 72 Resp: 16 16 14 Temp: 36.9 ?C (98.4 ?F) SpO2: 97% 100% I/O: Intake/Output Summary (Last 24 hours) at 12/06/2024 0727Last data filed at 12/06/2024 0400 Gross per 24 hour Intake 240 ml Output 1075 ml Net -835 ml PHYSICAL EXAM: Physical Exam: Eyes: Pupils: Pupils are equal, round, and reactive to light. Neurological: Mental Status: He is alert. GCS: GCS eye subscore is 4. GCS verbal subscore is 4. GCS motor subscore is 6. LABS/IMAGING:Labs: Hgb Date Value Ref Range Status 12/06/2024 13.6 12.4 - 17.4 g/dL Final HctDate Value Ref Range Status 12/06/2024 41.1 37.1 - 50.8 % Final Plt CountDate Value Ref Range Status 12/06/2024 366 160 - 381 10*3/uL Final Sodium LvlDate Value Ref Range Status 12/06/2024 137 136 - 145 mEq/L Final Potassium LvlDate Value Ref Range Status 12/06/2024 4.1 3.4 - 4.5 mEq/L Final Creatinine LvlDate Value Ref Range Status 12/06/2024 0.78 0.7 - 1.30 mg/dL Final Prothrombin Time (PT)Date Value Ref Range Status 12/04/2024 14.7 12 - 14.7 Seconds Final PTTDate Value Ref Range Status 12/04/2024 29.7 22.9 - 35.8 Seconds Final Activated Clotting Time (TEG) RapidDate Value Ref Range Status 12/04/2024 105 86 - 118 sec Final Radiology Imaging Reviewed: - I have personally reviewed all pertinent NSGY imaging studies and agree with the findings under "impression" ASSESSMENT AND PLAN:Active Problems: Patient Active Problem List Diagnosis Subdural hematoma (HCC) Moderate malnutrition (CMS/HCC) (HCC) Assessment: Assessment: 89 year old male presenting as a code stroke for left facial droop and weakness, found to have a known right acute subdural hematoma. He had a ground level fall on 11/28 and was admitted to [facility] and discharged on 12/02. He has been off thinners, has a history of CABG 5 years ago. Impression:- 1 cm right acute subdural hematoma I have seen and examined the patient. The patient is neurologically unchanged, slightly confused, with unchanged imaging. No additional neurosurgical procedures are planned, but we will follow the neurological exam. Updated family at bedside. Please call [phone] with questions. Eagle Garcia, [facility] Neurosurgery Cosigned by Beto Streeter MD at 12/06/2024 8:27 AM CDT Associated attestation - Beto Streeter MD - 12/06/2024 8:27 AM CDT I saw and evaluated the patient, participating in the sarmiento portions of the service. I reviewed the resident's note. I agree with the resident's findings and plan. * Parish Knutson LMSW - 12/05/2024 4:08 PM CDT CASE MANAGEMENT ROUTINE DISCHARGE PLAN NOTE LOS: 2 Barriers to Discharge: pending downgrade to IMU, syncope w/up DISCHARGE PLAN A: Rt to [facility] DISCHARGE PLAN B: n/a ROMAN: 3-5days Last Recorded Vitals: Blood pressure (!) 184/79, pulse 91, temperature (!) 36.1 ?C (96.9 ?F), temperature source Axillary, resp. rate 21, height 1.803 m (5' 10.98"), weight 85.3 kg (188 lb 0.8 oz), SpO2 100%. Current Diet: Adult Diet Regular Parish Knutson LMSW, TESS-HOWARD LAWR[facility] Saw Feeder - Neuro Service Line * Sofia Begum OT - 12/05/2024 2:02 PM CDT Treatment Session Note Patient Name: Denver Romo Today's Date: 12/05/2024 Preferred Language: [place]ian Assessment & Plan Pt will benefit from further skilled OT services to increase independence when performing ADL Tasks. Pt demonstrates highly decreased performance of functional tasks and pt with decreased balance when performing functional tasks. Pt with decreased balance when sitting as well as decreased endurance and activity tolerance throughout the session. Pt with decreased performance of functional activity at this time and currently requires mod A throughout the session. Pt with mod A to perform LB dressing throughout the session and noted with decreased balance when performing standing tasks. Overall, pt with decreased performance of grooming, bathing and dressing throughout the session. OT will continue to follow while in house and address the aforementioned deficits. Thanks. Assessment: OT Assessment Results: Impaired ADL status, Impaired upper extremity range of motion, Impaired upper extremity strength, Impaired safe judgment during ADL, Impaired endurance, Impaired fine motor control, Impaired functional mobility, Impaired gross motor control, Impaired IADLs, Impaired right upper extremity, Impaired left upper extremity Prognosis: Fair Barriers to Discharge: Safety awareness Evaluation/Treatment Tolerance: Patient limited by fatigue Precautions: Plan: Treatment Plan/Goals Established with Patient/Caregiver: Yes Treatment Interventions: ADL retraining, Continued evaluation, Compensatory technique education, Endurance training, Functional transfer training, Fine motor coordination activities, Neuromuscular reeducation, UE strengthening/ROM OT Planned Treatments: Activities of Daily Living, Balance training, Cognitive training, Coordination, Therapeutic exercises, Therapeutic activities, Safety education, Neuromuscular reeducation, Mobility training OT Plan: Skilled OT OT Frequency: 3-5 times per week until discharge OT Duration: Discharge SubjectivePt reports "I am hungry." ObjectiveOT arrives for session, Pt supine in bed upon arrival. RN oks session. Pt with daughter present throughout. Pt able to transition to the EOB with mod A. Pt able to perform standing with mod A. Pt with stable BP throughout the session. Pt able to perform self feeding tasks with mod A with cues for initiation throughout. Pt with difficulty in performing cognitive tasks throughout the session, requires mod to max A to perform sequencing tasks. Pt returns to sitting EOB with mod A and supine in bed with mod to max A. RN updated. Self Care (ADL):Eating Assistance: Partial/Mod assistance Grooming Assistance: Partial/Mod assistance Bathing Assistance: Partial/Mod assistance UE Dressing Assistance: Partial/Mod assistance LE Dressing Assistance: Partial/Mod assistance TreatmentSelf-Care: Eating Assistance: Partial/Mod assistance Grooming Assistance: Partial/Mod assistance Bathing Assistance: Partial/Mod assistance UE Dressing Assistance: Partial/Mod assistance LE Dressing Assistance: Partial/Mod assistance Bed Mobility: Bed Mobility 1Level of Assistance 1: Partial/Mod assistance Bed Mobility To/From: Roll lying on back to left, Roll lying on back to right, Supine to sit on EOB Bed Mobility 2 Level of Assistance 2: Partial/Mod assistance Bed Mobility To/From: Sitting EOB to supine, Supine to sit on EOB Transfers: Cognitive Skill DevelopmentCognitive Skill Development Cognitive Skill Development Activity 1: Cognitive tasks performed throughout the session with mod A. Other Activity AM-PAC Daily Activity: Putting on and taking off regular lower body clothing: A Lot Bathing (including washing, rinsing, drying): A Lot Toileting, which includes using toilet, bedpan or urinal: A Lot Putting on and taking off regular upper body clothing: A Little Taking care of personal grooming such as brushing teeth: A Little Eating Meals: A Little AM-PAC Daily Activity Raw Score: 15 Patient Education:Education Documentation No documentation found. Education Comments No comments found. Goals:Encounter Goals Encounter Goals (Active) Pt will perform LB dressing with min A. Start: 12/04/24 Expected End: 12/24/24 Pt will perform standing ADL tasks standing at the sink for 10 min throughout the session. Start: 12/04/24 Expected End: 12/24/24Ability to perform basic physical tasks and personal care activities. Patient demonstrates increased functional mobility and/or endurance by tolerating >10 min of OOB activities Start: 12/04/24 Expected End: 12/24/24Ability to perform basic physical tasks and personal care activities. Pt will follow 5/5 commands for greater participation in ADL Tasks. Start: 12/04/24 Expected End: 12/24/24Ability to perform basic physical tasks and personal care activities. Treatment Note: If this is the last documented treatment, then it will signify discharge from acute care prior to discharge from the therapy service and will serve as the discharge summary. Sofia Begum OT * Fernando Mancini MD - 12/05/2024 7:29 AM CDT Neurocritical Care Consultation Note Consulted by NSGY for medical mgmt History Of Present Illness Denver Romo, 89 y.o. male with PMH of CABG 5 years ago, CAD, COPD, Afib not on Eliqiuis, and recent subdural hematoma for which he was hospitalized at [facility] and discharged (12/02) , who presented on 12/03/2024 for left sided weakness and left facial droop that was noted at his nursing facility. 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 On EMS arrival BP of 118 and glucose of 130. OSH patient conversive but slow to respond. NIH of 2 for answering month and age incorrectly. Otherwise no deficits on exam. CT with A hyperattenuating right holohemispheric subdural hematoma measuring up to 9mm thick and causing partial sulcal/ventricular effacement. CTA w/ no large vesseel occlusion, medium vessel occlusion, or severe narrowing in the head or neck.. NSGY consulted for surgical management. Admitted to NSICU for neuro monitoring and management. Interval Events: 12/04: Stable neuro exam, repeat CTH stable 12/05: Neurologically stable, pending IMU transfer Past Medical History has a past medical history of COPD (chronic obstructive pulmonary disease) ([facility]) and SDH (subdural hematoma) ([facility]) (11/29/2024). Surgical History has no past surgical history on file. Family History No family history on file. Social History Social History Tobacco Use Smoking status: Never Allergies Patient has no known allergies. Home Medications No medications prior to admission. Review of Systems Unable to evaluate given clinical examination Physical Exam pre-admit mRS: Score 1: No significant disability despite symptoms; able to carry out all usual duties and activities Further clinical exam documented under Impression and Plan by systems. ASSESSMENT AND PLAN Murdock Echo Faraphire, 89 y.o. male with PMH of CAD, COPD, Afib not on Eliqiuis, and recent subdural hematoma for which he was hospitalized at [facility] and discharged (12/02) , who presented on 12/03/2024 for left sided weakness and left facial droop that was noted at his nursing facility. NEUROLOGIC Right traumatic holohemispheric subdural hematoma Brain compression, present on admission Neuro Exam: GCS 14 (4E, 4V, 6M) MS: AAO x1 to self and not to place or time, following commands, speech fluent, no dysarthria, naming intact, no neglect CN: L pupil 3, R pupil 3, EOMI, VFF, face symmetric Motor: No drift, 5/5 strength throughout Coordination: FNF no dysmetria 12/03: initial CTH revealed hyperattenuating right holohemispheric subdural hematoma : CTA H/N Mild atherosclerosis. No large vessel occlusion, medium vessel occlusion, or severe narrowing in the head or neck. Repeat CTH stable 12/03 2333 No acute neurosurgical intervention indicated, neurosurgery following closely Syncope w/u including echo, orthostatic BP, and ECG Will decrease LEV to 500 mg q12h PT/OT/TIRE DESIGN ENGINEER as indicated CARDIOVASCULAR Essential hypertension on admission Afib CAD CV Exam: RRR Temp: [36.3 ?C (97.4 ?F)-38.3 ?C (100.9 ?F)] 37.1 ?C (98.8 ?F) Heart Rate: [70-114] 84 Resp: [14-25] 25 BP: (110-181)/(51-77) 165/77 VS Parameters: MAP>65, SBP<150 PRN hydralazine, labetalol > Hydralazine x 3 and labetalol x 1 used 12/04 Will start losartan Trop: 6 > 7 EKG Sinus Rhythm with sinus arrhythmia TTE ordered No arterial line, no CVC PULMONARY Pulm Exam: CTAB Currently on RA CXR ordered, bilateral opacities, clinically low concern for pneumonia at this time GASTROINTESTINAL GI Exam: soft, non-distended, present bowl sounds Nutrition: Current Order: regular diet GI route: PO bowel regimen: senna last BM [employer], will add miralax Unmeasured Stool Occurrence: 0 Lab Results Component Value Date ALT 19 12/05/2024 AST 20 12/05/2024 Alkaline Phosphatase 50 12/05/2024 Bilirubin Total 0.44 12/05/2024 RENAL Intake/Output Summary (Last 24 hours) at 12/05/2024 0905 Last data filed at 12/05/2024 0027 Gross per 24 hour Intake -- Output 650 ml Net -650 ml Urine Output: 0mL in 24hrs mL/kg/hr (last 24hrs) Results from last 7 days Lab Units 12/05/24 0027 12/04/24 0101 12/04/24 0045 12/03/24 1807 SODIUM mEq/L 138 -- 138 134* POTASSIUM mEq/L 4.1 -- 3.7 4.0 CHLORIDE mEq/L 104 -- 102 101 CO2 mEq/L 25.0 -- 27.9 27.5 BUN mg/dL 14 -- 25* 30* CREATININE mg/dL 0.88 -- 0.97 1.35* MAGNESIUM mg/dL 2.12 -- 1.79 -- PHOSPHORUS mg/dL 2.4 -- 3.3 -- CALCIUM mg/dL 8.7 -- 8.7 9.1 CALCIUM ION WB mmol/L -- 1.20 -- -- CALCIUM ION WB 7.4 mmol/L -- 1.18 -- -- ICU electrolyte replacement protocol No IVF no jenkins INFECTIOUS DISEASE Temp (24hrs), Av ?C (98.6 ?F), Min:36.3 ?C (97.4 ?F), Max:38.3 ?C (100.9 ?F) Results from last 7 days Lab Units 12/05/24 0027 12/04/24 0049 12/03/24 1807 WBC 10*3/uL 9.30 8.05 9.14 Monitor trend fever curve and WBC Will send UA Will hold further doses of cefepime, will clarify with the patient's family if he was prescribed abx as an outpatient for a UTI no ABX indicated HEMATOLOGIC Coagulopathy: Hypercoagulable state on admission Results from last 7 days Lab Units 12/05/24 0027 12/04/24 0049 12/04/24 0045 12/03/24 1807 HEMOGLOBIN g/dL 12.9 12.3* -- 13.1 PLATELETS 10*3/uL 312 251 -- 288 INR -- -- 1.13 1.07 PTT Seconds -- -- 29.7 30.5 TEG ACT 136, repeat ACT 105 No coagulopathy on labs or per history No reversal agent needed DVT ppx: SCDs, sqh started ENDOCRINE 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) on admission Results from last 7 days Lab Units 12/05/24 0027 12/04/24 1305 12/04/24 0815 12/04/24 0102 12/04/24 0050 12/04/24 0045 GLUCOSE mg/dL 114* -- -- -- -- 123* POC GLUCOSE mg/dL -- 89 119* < > -- -- HEMOGLOBIN A1C % -- -- -- -- 5.10 -- TSH uIU/mL -- -- -- -- -- 1.793 < > = values in this interval not displayed. BG goal 80-180 medium-dose ISS MUSCULOSKELETAL AND INTEGUMENTARY Skin Exam: warm, dry, intact Code Status: Full Code Disposition: Pending transfer to IMU [facility] Neurocritical Care ICU White Team ICU Ph #[phone]; White Team IMU/Floor [facility] Ph #[phone] (available 06/03), #[phone] (available 6:30a - 4:30p) The patient was seen and examined by me at a separate time from the HARRY/Fellow/resident. I also reviewed the documentation and agree with the documented findings and plan of care. Additionally, I was directly involved in the management of the patient and provided the substantive portion of this visit, including examining the patient, obtaining history, and medical decision-making. * Raza Xiao MD - 12/05/2024 5:49 AM CDT NEUROSURGERY PROGRESS NOTE: Date: 12/05/24 Patients Name: Denver Romo Admit Date: 12/03/2024 Admitting Provider: Jessi Bettencourt MD : [id number] Service: Neurosurgery Trauma Team Age/Sex: 89 y.o. male SUBJECTIVE: No neuro events. OBJECTIVE: Vitals: Vitals: 12/05/24 0254 12/05/24 0258 12/05/24 0300 12/05/24 0400 BP: (!) 171/71 144/61 135/61 Pulse: 88 94 97 (!) 102 Resp: 21 21 (!) 23 (!) 23 Temp: SpO2: 100% I/O: Intake/Output Summary (Last 24 hours) at 12/05/2024 0549Last data filed at 12/04/2024 1800 Gross per 24 hour Intake 150 ml Output 1075 ml Net -925 ml PHYSICAL EXAM: Physical Exam: Eyes: Pupils: Pupils are equal, round, and reactive to light. Neurological: Mental Status: He is alert. GCS: GCS eye subscore is 4. GCS verbal subscore is 4. GCS motor subscore is 6. LABS/IMAGING:Labs: Hgb Date Value Ref Range Status 12/05/2024 12.9 12.4 - 17.4 g/dL Final HctDate Value Ref Range Status 12/05/2024 39.4 37.1 - 50.8 % Final Plt CountDate Value Ref Range Status 12/05/2024 312 160 - 381 10*3/uL Final Sodium LvlDate Value Ref Range Status 12/05/2024 138 136 - 145 mEq/L Final Potassium LvlDate Value Ref Range Status 12/05/2024 4.1 3.4 - 4.5 mEq/L Final Creatinine LvlDate Value Ref Range Status 12/05/2024 0.88 0.7 - 1.30 mg/dL Final Prothrombin Time (PT)Date Value Ref Range Status 12/04/2024 14.7 12 - 14.7 Seconds Final PTTDate Value Ref Range Status 12/04/2024 29.7 22.9 - 35.8 Seconds Final Activated Clotting Time (TEG) RapidDate Value Ref Range Status 12/04/2024 105 86 - 118 sec Final Radiology Imaging Reviewed: - I have personally reviewed all pertinent GY imaging studies and agree with the findings under "impression" ASSESSMENT AND PLAN:Active Problems: Patient Active Problem List Diagnosis Subdural hematoma (HCC) Moderate malnutrition (CMS/HCC) (HCC) Assessment: Assessment: 89 year old male presenting as a code stroke for left facial droop and weakness, found to have a known right acute subdural hematoma. He had a ground level fall on 11/28 and was admitted to [facility] and discharged on 12/02. He has been off thinners, has a history of CABG 5 years ago. Impression:- 1 cm right acute subdural hematoma I have seen and examined the patient. The patient is neurologically unchanged with unchanged imaging. No additional neurosurgical procedures are planned, but we will follow the neurological exam. He does not require ICU level of care from the neurosurgical standpoint. Please call [phone] with questions. I have updated his family on his condition and have answered her questions. Raza Xiao [facility] Neurosurgery * Sofia Begum, OT - 12/04/2024 1:26 PM CDT Evaluation and Treatment Patient Name: Manny Willard Today's Date: 12/04/2024 Preferred Language: Namibian Assessment & Plan Pt will benefit from further skilled OT services to increase independence when performing ADL Tasks. Pt demonstrates highly decreased performance of functional tasks and pt with decreased balance when performing functional tasks. Pt with decreased balance when sitting as well as decreased endurance and activity tolerance throughout the session. Pt with decreased performance of functional activity at this time and currently requires mod A throughout the session. Pt with mod A to perform LB dressing throughout the session and noted with decreased balance when performing standing tasks. Overall, pt with decreased performance of grooming, bathing and dressing throughout the session. OT will continue to follow while in house and address the aforementioned deficits. Thanks. Assessment: OT Assessment Results: Impaired ADL status, Impaired upper extremity strength, Impaired functional mobility, Impaired gross motor control, Impaired IADLs Prognosis: Excellent Evaluation/Treatment Tolerance: Patient limited by fatigue Plan: Treatment Plan/Goals Established with Patient/Caregiver: Yes Treatment Interventions: ADL retraining, Endurance training, Functional transfer training, Fine motor coordination activities, Neuromuscular reeducation, Patient/family training, UE strengthening/ROM OT Planned Treatments: Activities of Daily Living, Coordination, Home program, Mobility training, Therapeutic activities, Therapeutic exercises OT Plan: Skilled OT OT Frequency: 3-5 times per week until discharge OT Duration: Discharge Subjective Pt reports "I just lost my ." Current Problem: Manny Willard, 89 y.o. male with PMH of CABG 5 years ago, CAD, COPD, Afib not on Eliqiuis, and recent subdural hematoma for which he was hospitalized at [facility] and discharged (12/02) , who presented on 12/03/2024 for left sided weakness and left facial droop that was noted at his nursing facility. 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 On EMS arrival BP of 118 and glucose of 130. OSH patient conversive but slow to respond. NIH of 2 for answering month and age incorrectly. Otherwise no deficits on exam. CT with A hyperattenuating right holohemispheric subdural hematoma measuring up to 9mm thick and causing partial sulcal/ventricular effacement. CTA w/ no large vesseel occlusion, medium vessel occlusion, or severe narrowing in the head or neck.. NSGY consulted for surgical management. Admitted to NSICU for neuro monitoring and management. Pain: Pain Assessment: DVPRS (12/04/2024 9:45 AM) Pain Score: 0 (12/04/2024 9:45 AM) Pain Type: Acute pain (12/04/2024 8:10 AM) Objective OT arrives for session, Pt supine in bed upon arrival. RN oks session. Pt with no family present throughout. Pt able to transition to the EOB with mod A. Pt able to perform standing with mod A. Pt with stable BP throughout the session. Pt able to perform sidesteps to the HOB with mod to max A. Pt with difficulty in performing cognitive tasks throughout the session, requires mod to max A to perform sequencing tasks. Pt returns to sitting EOB with mod A and supine in bed with mod to max A. RN updated. 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, Personal ADL Prior IADL: Self Care (ADL): Eating Assistance: Partial/Mod assistance Grooming Assistance: Partial/Mod assistance Bathing Deficit: Supervision/safety Bathing Assistance: Partial/Mod assistance UE Dressing Assistance: Partial/Mod assistance UE Dressing Deficit: Supervision/safety LE Dressing Assistance: Partial/Mod assistance Toileting Assistance: Partial/Mod assistance Mobility/Transfers:Bed Mobility Bed Mobility Bed Mobility: Yes Bed Mobility 1 Level of Assistance 1: Partial/Mod assistance Bed Mobility To/From: Sitting EOB to supine, Supine to sit on EOB Bed Mobility 2 Level of Assistance 2: Partial/Mod assistance Bed Mobility To/From: Roll left/right Transfer OT General Assessments:ADL Eating Assistance: Partial/Mod assistance Grooming Assistance: Partial/Mod assistance Bathing Deficit: Supervision/safety Bathing Assistance: Partial/Mod assistance UE Dressing Assistance: Partial/Mod assistance UE Dressing Deficit: Supervision/safety LE Dressing Assistance: Partial/Mod assistance Toileting Assistance: Partial/Mod assistance Extremity Assessments:Right Upper Extremity RUE Assessment RUE Assessment: Exceptions to WFL RUE StrengthRUE Overall Strength: Deficits Left Upper Extremity LUE AssessmentLUE Assessment: Exceptions to WFL LUE StrengthLUE Overall Strength: Deficits Treatment:Self-Care: Eating Assistance: Partial/Mod assistance Grooming Assistance: Partial/Mod assistance Bathing Deficit: Supervision/safety Bathing Assistance: Partial/Mod assistance UE Dressing Assistance: Partial/Mod assistance UE Dressing Deficit: Supervision/safety LE Dressing Assistance: Partial/Mod assistance Toileting Assistance: Partial/Mod assistance Bed Mobility:Bed Mobility Bed Mobility: Yes Bed Mobility 1 Level of Assistance 1: Partial/Mod assistance Bed Mobility To/From: Sitting EOB to supine, Supine to sit on EOB Bed Mobility 2 Level of Assistance 2: Partial/Mod assistance Bed Mobility To/From: Roll left/right Transfers: AM-PAC Daily Activity:Putting on and taking off regular lower body clothing: A Lot Bathing (including washing, rinsing, drying): A Lot Toileting, which includes using toilet, bedpan or urinal: A Little Putting on and taking off regular upper body clothing: A Little Taking care of personal grooming such as brushing teeth: A Little Eating Meals: A Little AM-PAC Daily Activity Raw Score: 16 Patient Education:Education Documentation No documentation found. Education Comments No comments found. Goals:Encounter Goals Encounter Goals (Active) Pt will perform LB dressing with min A. Start: 12/04/24 Expected End: 12/24/24 Pt will perform standing ADL tasks standing at the sink for 10 min throughout the session. Start: 12/04/24 Expected End: 12/24/24Ability to perform basic physical tasks and personal care activities. Patient demonstrates increased functional mobility and/or endurance by tolerating >10 min of OOB activities Start: 12/04/24 Expected End: 12/24/24Ability to perform basic physical tasks and personal care activities. Pt will follow 5/5 commands for greater participation in ADL Tasks. Start: 12/04/24 Expected End: 12/24/24Ability to perform basic physical tasks and personal care activities. Treatment Note: If this is the last documented treatment, then it will signify discharge from acute care prior to discharge from the therapy service and will serve as the discharge summary. Sofia Begum OT * Jimena Obregon, PT - 12/04/2024 10:13 AM CDT Evaluation and Treatment Note Patient Name: Manny Willard Today's Date: 12/04/2024 Preferred Language: [place]ibian Assessment & Plan Assessment: Consulted w/ RN prior to seeing pt. Pt was received supine in bed. computer aided design technician assisting throughout the session. Pt was able to state his full name and birthday. Pt with delayed verbal responses. Pt with delayed initiation. Unsure how much of this was related to behavior vs confusion. Pt needed MAXIMAL cueing for one step commands due to impaired initiation. Pt needed MAX A x 2 for supine < > sit transfer (again due to poor initiation of movement). Pt completed sit to stand transfer w/ Mod A. Pt refused to sit in chair. Pt amb 3 side steps w/ RW & MOD A x 2 along side bed. TOTAL A x 2 for supine < > sit transfer. Per EMR, pt is a [facility], needs assist for ADLs, and needs 2 person assist for pivot transfer to wheelchair. Pt currently appears to be at his functional mobility baseline. Pt will be D/C from IP PT services. Recommend lift team assistance to transfer pt from bed < > chair while here in the hospital. Plan: Treatment Plan/Goals Established with Patient/Caregiver: Yes Treatment/Interventions: Balance training, Bed mobility training, Caregiver training, Equipment training, Functional activities, Gait training, Neuromuscular re-education, Pain management, Patient education, Positioning, Posture/Body mechanics baring, Therapeutic exercises, Transfer training PT Plan: Skilled PT PT Frequency: 2-3 times per week until discharge PT Recommended Transfer Status: Total assist of 2 Per H&P: "Manny Willard, 89 y.o. male with PMH of CABG 5 years ago, CAD, COPD, Afib not on Eliqiuis, and recent subdural hematoma for which he was hospitalized at [facility] and discharged (12/02) , who presented on 12/03/2024 for left sided weakness and left facial droop that was noted at his nursing facility. 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 On EMS arrival BP of 118 and glucose of 130. OSH patient conversive but slow to respond. NIH of 2 for answering month and age incorrectly. Otherwise no deficits on exam. CT with A hyperattenuating right holohemispheric subdural hematoma measuring up to 9mm thick and causing partial sulcal/ventricular effacement. CTA w/ no large vesseel occlusion, medium vessel occlusion, or severe narrowing in the head or neck.. NSGY consulted for surgical management. Admitted to NSICU for neuro monitoring and management." Prior Level of Function: Prior Function Comments: admitted from [facility]. Unknown PLOF. Per EMR: Pt needs assistance with ADLs and 2 person assist for pivot to wheelchair. DME: wheelchair ObjectiveGeneral Visit Information: Functional Assessments: Bed Mobility Bed Mobility 1: Level of Assistance 1: Substantial/Max assistance Bed Mobility To/From: Supine to sit on EOB Transfers Transfers 1:Level of Assistance 1: Partial/Mod assistance Transfer To/From: Lev-is-Zlyum/[id number]-[id number]-Lcz Gait Gait Training Activity 1: Distance (enter in feet): 3 side steps Assistive Devices And Adaptive Equipments: Walker, front-wheeled Level of Assistance 1: Partial/Mod assistance AM-PAC Basic Mobility:Turning in bed without bedrails: A Lot Lying on back to sitting on edge of flat bed: A Lot Bed to chair: A Lot Standing up from chair: A Lot Walk in room: A Lot Climbing 3-5 stairs: Total Mobility Inpatient Raw Score: 11 JH-HLM Goal: 4 Mobility: Highest Level of Mobility Performed (JH-HLM)Static standing (1 or more minutes) Modified [place] Patient Education: Education Documentation Physical Therapy Plan of Care, taught by Jimena Obregon PT at 12/04/2024 3:02 PM. Learner: Patient Readiness: Nonacceptance Method: Explanation Response: Needs Reinforcement Education CommentsNo comments found. Treatment Note: If this is the last documented treatment, then it will signify discharge from acute care prior to discharge from the therapy service and will serve as the discharge summary. Jimena Obregon PT * Ariane Stuart CCC-TIRE DESIGN ENGINEER - 12/04/2024 10:03 AM CDT Images from the original note were not included. [facility] TIRE DESIGN ENGINEER CLINICAL SWALLOWING EVALUATION (CSE) Patient Name: Manny Willard Today's Date: 12/04/2024 Time in: 0945 Time out: 0955 Room: [place] [id number] CLINICAL SWALLOW EVALUATION SUMMARY: Patient seen at bedside, noted to be awake and alert. Oral motor exam was grossly functional for speech and deglutition. The patient was provided trials of ice, thin liquids via spoon, cup, and straw, pudding, and regular solids. Patient demonstrated adequate bolus acceptance (no anterior spillage or stasis), suspected timely formation of the bolus and good mastication of solids with good rotary chew, suspected timely oral transit with suspected timely swallow initiation and hyolaryngeal elevation appreciated on digital palpation. No overt s/s of aspiration noted. a clinical swallow evaluation does not definitively r/o aspiration. If changes to CXR, elevated WBC/CRP, unexplained fever, or increased congestion occur, consider making patient NPO and instrumental swallow assessment. RECOMMENDATIONS: Level 0- Thin Liquids and Level 7- Regular diet Medications: Whole with drink, As tolerated Swallow Precautions: Alternate liquids/solids, Feed only when alert, Remain upright after meals 30 minutes, Upright to 90 degrees, Small bites/sips Supervision Recommended: Close supervision Oral care: Regular toothbrush , As needed Suspected baseline swallowing abilities therefore, TIRE DESIGN ENGINEER to sign off. Please re-consult PRN. PROGNOSIS: Good PLAN: Frequency: Discharge GENERAL INFORMATION: Reason for Consult: Pt was referred for a clinical swallow evaluation in the setting of AMS work up. See H&P and medical notes for details. Oxygenation: room air Behavior:Cooperative Level of Consciousness: Awake & alert Pain: Pain Assessment: DVPRS Pain Score: 0 Diet Prior to this Evaluation: Level 0- Thin Liquids and Level 7- Regular diet Preferred Language: Namibian Development Coordinator: n/a ORAL MOTOR EXAM: Dentition: Adequate Face: Within Functional Limits Jaw: Within Functional Limits Lips: Within Functional Limits Tongue: Within Functional Limits Soft Palate: Within Functional Limits Larynx: Within Functional Limits Involuntary Muscular Movement: Absent SWALLOW ASSESSMENT: Consistencies Assessed Consistencies Assessed: Yes Swallowing Overview - Liquids 0 - Thin Liquid: WFL Swallowing Overview - Solids 7 - Regular: WFL Clinical Swallow Evaluation Patient Positioning: Mostly upright, In bed Previous History of Dysphagia?: No Inability to Follow One Step Directions?: No Tracheostomy Present: No Inability to Manage Their Secretions?: No Incomplete Lingual ROM?: No Incomplete Facial Symmetry (Facial Droop)?: No Voice Change During Swallowing Trials?: No Abnormal/Weak Volitional Cough?: No Cough/Throat Clear w/ Trial Consistency?: No Dysphonia (Quality and/or Pitch Change)?: No Motor Speech Disorder (Dysarthria/Apraxia)?: No Apraxia of the Swallow Suspected?: No Delayed Swallow Suspected?: No Multiple Swallows Per Bolus Suspected?: No Tongue Pumping Suspected?: No OUTCOME MEASURES: International Dysphagia Diet Standardization Initiative - IDDSI Solids - 7 - Regular Liquids - 0 - Thin IDDSI Level - 8 EDUCATION: Education Documentation Dietary Recommendations, taught by GAIL Mason at 12/04/2024 10:03 AM. Learner: Patient Readiness: Acceptance Method: Explanation Response: Verbalizes Understanding Swallowing Strategies, taught by GAIL Mason at 12/04/2024 10:03 AM. Learner: Patient Readiness: Acceptance Method: Explanation Response: Verbalizes Understanding Speech-Language/Pathology Treatment Plan, taught by GAIL Mason at 12/04/2024 10:03 AM. Learner: Patient Readiness: Acceptance Method: Explanation Response: Verbalizes Understanding Results of Exam, taught by GAIL Mason at 12/04/2024 10:03 AM. Learner: Patient Readiness: Acceptance Method: Explanation Response: Verbalizes Understanding Education Comments No comments found. If this is the last documented treatment, then it will signify discharge from acute care prior to discharge from the therapy service and will serve as the discharge summary. Therapy discharge recommendations are made by determining the patient's prior level of function, assessing current function level and establishing rehab potential. The overall discharge plan may be affected by input from Physicians, Care Coordination, medical condition/status, family support and insurance benefits. GAIL Mason * Griselda Delarosa LMSW - 12/04/2024 9:30 AM CDT Plan A: rtn to ID Plan B: SNF 12/04/24 0900 Readmission Questions Is this hospital visit a Readmission? No Discharge Planning Information Source Family (dtr, Liz Jones, ) Permanent Residence [facility]idential care ([facility], ) Care Facility Name [facility], Household Members Other (Comment) (resides at a ID) Support Systems Children Arrived From Detention Facility In the last 12 months, was there a time when you were not able to pay the mortgage or rent on time? N In the past 12 months, how many times have you moved where you were living? 0 At any time in the past 12 months, were you homeless or living in a fpc (including now)? N In the past 12 months has the [employer], gas, oil, or water [employer] threatened to shut off services in your home? No Within the past 12 months, you worried that your food would run out before you got the money to buy more. Never true Within the past 12 months, the food you bought just didn't last and you didn't have money to get more. Never true Assistive Devices Wheelchair (2 person assist for pivot.) Current In-Home DME Supplier Name [employer] Current In-Home DME Supplier Contact [employer] Assistance Needed Asst ADLS Patient expects to be discharged to: SNF vs Rtn to NH Expected Discharge Disposition SNF Anticipated Services at Discharge Post acute facilities (Rehab/SNF/etc) Type of Post Acute Facility Services half-way In the past 12 months, has lack of transportation kept you from medical appointments or from getting medications? no In the past 12 months, has lack of transportation kept you from meetings, work, or from getting things needed for daily living? No Does the patient need discharge transport arranged? No Discharge Planning Comments DPA completed with Pt dtr, Liz Jones, , who confirmed that Pt resides at [facility] and is agreeable for Pt to return to [facility], [address] [place] [address]. Medications and physicians are via [facility]. (wheelchair and 2 person assist for pivot.) Discharge Planning Status Initial Assessment Complete * Fernando Mancini MD - 12/04/2024 7:38 AM CDT Neurocritical Care Consultation Note Consulted by EDWIN for medical mgmt History Of Present Illness Manny Willard, 89 y.o. male with PMH of CABG 5 years ago, CAD, COPD, Afib not on Eliqiuis, and recent subdural hematoma for which he was hospitalized at [facility] and discharged (12/02) , who presented on 12/03/2024 for left sided weakness and left facial droop that was noted at his nursing facility. 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 On EMS arrival BP of 118 and glucose of 130. OSH patient conversive but slow to respond. NIH of 2 for answering month and age incorrectly. Otherwise no deficits on exam. CT with A hyperattenuating right holohemispheric subdural hematoma measuring up to 9mm thick and causing partial sulcal/ventricular effacement. CTA w/ no large vesseel occlusion, medium vessel occlusion, or severe narrowing in the head or neck.. NSGY consulted for surgical management. Admitted to NSICU for neuro monitoring and management. Interval Events: 12/04: Stable neuro exam, repeat CTH stable Past Medical History has a past medical history of COPD (chronic obstructive pulmonary disease) ([facility]) and SDH (subdural hematoma) ([facility]) (11/29/2024). Surgical History has no past surgical history on file. Family History No family history on file. Social History Social History Tobacco Use Smoking status: Never Allergies Patient has no known allergies. Home Medications No medications prior to admission. Review of Systems Unable to evaluate given clinical examination Physical Exam pre-admit mRS: Score 1: No significant disability despite symptoms; able to carry out all usual duties and activities Further clinical exam documented under Impression and Plan by systems. ASSESSMENT AND PLAN Murdock Echo Sapphire, 89 y.o. male with PMH of CAD, COPD, Afib not on Eliqiuis, and recent subdural hematoma for which he was hospitalized at [facility] and discharged (12/02) , who presented on 12/03/2024 for left sided weakness and left facial droop that was noted at his nursing facility. NEUROLOGIC Right traumatic holohemispheric subdural hematoma Brain compression, present on admission Neuro Exam: GCS 14 (4E, 4V, 6M) MS: AAO x1 to self and not to place or time, following commands, speech fluent, no dysarthria, naming intact, no neglect CN: L pupil 3, R pupil 3, EOMI, VFF, face symmetric Motor: No drift, 5/5 strength throughout Coordination: FNF no dysmetria 12/03: initial CTH revealed hyperattenuating right holohemispheric subdural hematoma : CTA H/N Mild atherosclerosis. No large vessel occlusion, medium vessel occlusion, or severe narrowing in the head or neck. 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 CARDIOVASCULAR Essential hypertension on admission Afib CAD CV Exam: RRR Temp: [35.1 ?C (95.1 ?F)-36.5 ?C (97.7 ?F)] 36.5 ?C (97.7 ?F) Heart Rate: [53-81] 75 Resp: [15-24] 21 BP: (112-181)/(55-76) 159/68 VS Parameters: MAP>65, SBP<150 PRN hydralazine, labetalol > Hydralazine x 1 and labetalol x 1 used Home Meds: Trop: 6 > 7 EKG Sinus Rhythm with sinus arrhythmia TTE ordered PULMONARY Pulm Exam: CTAB ABG Currently on RA CXR ordered, bilateral opacities, clinically low concern for pneumonia at this time GASTROINTESTINAL GI Exam: soft, non-distended, present bowl sounds Nutrition: Current Order: regular diet GI route: PO GI ppx: Pepcid daily bowel regimen: senna, miralax last BM [facility] Unmeasured Stool Occurrence: 0 Lab Results Component Value Date ALT 25 12/03/2024 AST 24 12/03/2024 Alkaline Phosphatase 60 12/03/2024 Bilirubin Total 0.29 12/03/2024 RENAL Intake/Output Summary (Last 24 hours) at 12/04/2024 1119 Last data filed at 12/04/2024 0800 Gross per 24 hour Intake 460 ml Output 775 ml Net -315 ml Urine Output: 0mL in 24hrs mL/kg/hr (last 24hrs) Results from last 7 days Lab Units 12/04/24 0101 12/04/24 0045 12/03/24 1807 SODIUM mEq/L -- 138 134* POTASSIUM mEq/L -- 3.7 4.0 CHLORIDE mEq/L -- 102 101 CO2 mEq/L -- 27.9 27.5 BUN mg/dL -- 25* 30* CREATININE mg/dL -- 0.97 1.35* MAGNESIUM mg/dL -- 1.79 -- PHOSPHORUS mg/dL -- 3.3 -- CALCIUM mg/dL -- 8.7 9.1 CALCIUM ION WB mmol/L 1.20 -- -- CALCIUM ION WB 7.4 mmol/L 1.18 -- -- ICU electrolyte replacement protocol NS 50 ml/hr while NPO no jenkins INFECTIOUS DISEASE Temp (24hrs), Av.8 ?C (96.4 ?F), Min:35.1 ?C (95.1 ?F), Max:36.5 ?C (97.7 ?F) Results from last 7 days Lab Units 12/04/24 00412/03/24 1807 WBC 10*3/uL 8.05 9.14 Monitor trend fever curve and WBC no ABX indicated HEMATOLOGIC Coagulopathy: Hypercoagulable state on admission Results from last 7 days Lab Units 12/04/24 00412/04/24 00412/03/24 1807 HEMOGLOBIN g/dL 12.3* -- 13.1 PLATELETS 10*3/uL 251 -- 288 INR -- 1.13 1.07 PTT Seconds -- 29.7 30.5 TEG ACT 136 No coagulopathy on labs or per history No reversal agent needed Will repeat TEG and transfuse if needed DVT ppx: SCDs, sqh pending repeat TEG ENDOCRINE 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) on admission Results from last 7 days Lab Units 12/04/24 0815 12/04/24 0102 12/04/24 0050 12/04/24 0045 GLUCOSE mg/dL -- -- -- 123* POC GLUCOSE mg/dL 119* 118* -- -- HEMOGLOBIN A1C % -- -- 5.10 -- TSH uIU/mL -- -- -- 1.793 BG goal 80-180 medium-dose ISS MUSCULOSKELETAL AND INTEGUMENTARY Skin Exam: warm, dry, intact Code Status: Full Code Disposition: Will transfer to IMU [facility] Neurocritical Care ICU White Team ICU Ph #[phone]; White Team IMU/Floor [facility]Y Ph #[phone] (available 06/03), #[phone] (available 6:30a - 4:30p) The patient was seen and examined by me at a separate time from the HARRY/Fellow/resident. I also reviewed the documentation and agree with the documented findings and plan of care. Additionally, I was directly involved in the management of the patient and provided the substantive portion of this visit, including examining the patient, obtaining history, and medical decision-making. * Raza Xiao MD - 12/04/2024 5:46 AM CDT NEUROSURGERY PROGRESS NOTE: Date: 12/04/24 Patients Name: Manny Willard Admit Date: 12/03/2024 Admitting Provider: Jessi Bettencourt MD : 1935 Service: Neurosurgery Trauma Team Age/Sex: 89 y.o. male SUBJECTIVE: No neuro events. OBJECTIVE: Vitals: Vitals: 12/04/24 0200 12/04/24 0300 12/04/24 0400 12/04/24 0500 BP: 156/71 150/66 (!) 164/69 (!) 181/74 Pulse: 62 63 64 67 Resp: Temp: SpO2: 99% 100% 99% 99% I/O: Intake/Output Summary (Last 24 hours) at 12/04/2024 0547Last data filed at 12/04/2024 0300 Gross per 24 hour Intake 260 ml Output 350 ml Net -90 ml PHYSICAL EXAM: Physical Exam: Eyes: Pupils: Pupils are equal, round, and reactive to light. Neurological: Mental Status: He is alert. GCS: GCS eye subscore is 4. GCS verbal subscore is 4. GCS motor subscore is 6. LABS/IMAGING:Labs: Hgb Date Value Ref Range Status 12/04/2024 12.3 (L) 12.4 - 17.4 g/dL Final HctDate Value Ref Range Status 12/04/2024 37.7 37.1 - 50.8 % Final Plt CountDate Value Ref Range Status 12/04/2024 251 160 - 381 10*3/uL Final Sodium LvlDate Value Ref Range Status 12/04/2024 138 136 - 145 mEq/L Final Potassium LvlDate Value Ref Range Status 12/04/2024 3.7 3.4 - 4.5 mEq/L Final Creatinine LvlDate Value Ref Range Status 12/04/2024 0.97 0.7 - 1.30 mg/dL Final Comment: This result was previously suppressed from the chart. Prothrombin Time (PT)Date Value Ref Range Status 12/04/2024 14.7 12 - 14.7 Seconds Final PTTDate Value Ref Range Status 12/04/2024 29.7 22.9 - 35.8 Seconds Final Activated Clotting Time (TEG) RapidDate Value Ref Range Status 12/03/2024 136 (H) 86 - 118 sec Final Radiology Imaging Reviewed: - I have personally reviewed all pertinent NSGY imaging studies and agree with the findings under "impression" ASSESSMENT AND PLAN:Active Problems: Patient Active Problem List Diagnosis Subdural hematoma (HCC) Assessment: Assessment: 89 year old male presenting as a code stroke for left facial droop and weakness, found to have a known right acute subdural hematoma. He had a ground level fall on 11/28 and was admitted to [facility] and discharged on 12/02. He has been off thinners, has a history of CABG 5 years ago. Impression:- 1 cm right acute subdural hematoma I have seen and examined the patient. The patient is neurologically unchanged with unchanged imaging. It is unclear if this even was a seizure or CSDs. No surgical interventions are indicated from my standpoint, but we will continue to follow the neurological exam. We will contact the family this morning. Please call [phone] with questions. I have updated his family on his condition and have answered her questions. Raza Xiao [id number] 19:39:33Pending Results Scheduled Orders Name Type Priority Associated Diagnoses Order Schedule ABORh Blood Type and Antibody Screen Lab STAT STAT (Lab) for 1 Occurrences starting 12/03/2024 until 12/03/2024 Comprehensive Metabolic Panel Lab Add-On Daily until discontinued starting 12/04/2024, 2 completed Complete Blood Count w/Diff and Platelet Lab STAT Daily until discontinued starting 12/04/2024, 3 completed POCT Glucose Point of Care Testing - Docked Device Routine Every 6 hours (Lab) for 30 Days starting 12/04/2024 until 01/02/2025, 10 completed POCT Glucose Point of Care Testing - Docked Device Routine Every 15 minutes as needed until discontinued starting 12/03/2024 UA with culture if indicated Lab Routine Once (Lab) for 1 Occurrences starting 12/05/2024 until 12/05/2024 Health Maintenance Due Date Last Done Comments Lipid Panel 1935 Medicare Annual Wellness (AWV) 1935 DTaP/Tdap/Td Vaccines (1 - Tdap) 1954 Pneumococcal Vaccine: 50+ Ye ars (1 of 1 - PCV) 1985 Zoster Vaccines (1 of 2) 1985 Respiratory Syncytial Virus (RSV) Adult Series (1 - 1-dose 75+ series) 2010 Influenza Vaccine (Season Ended) 2025 HIB Vaccines Aged Out No longer eligi ble based on patient's age to complete this topic HPV Vaccines Aged Out No longer eligi ble based on patient's age to complete this topic Hepatitis A Vaccines Aged Out No long er eligible based on patient's age to complete this topic Hepatitis B Vaccines Aged Out No long er eligible based on patient's age to complete this topic IPV Vaccines Aged Out No longer eligi ble based on patient's age to complete this topic Meningococcal Vaccine Aged Out No nelida donnie eligible based on patient's age to complete this topic Rotavirus Vaccines Aged Out No longer eligible based on patient's age to complete this topic [id number] 19:39:33 Diagnosis Subdural hematoma (HCC) - Primary Subdural hemorrhage SDH (subdural hematoma) (HCC) Subdural hemorrhage Moderate malnutrition (CMS/H CC) (HCC) [place] [address]0025-04-25 19:39:33 [place] [address]0025-04-25 17:51:49 Pt transferred to facility via [facility] at this time. Pt brother in law at bedside, all belongings taken, both IV taken out, answered all pt questions. [id number] 17:21:22 RN gave report to Natalie SONG at nursing facility pt is transferring to, awaiting AMS arrival. [facility]2025-04-25 07:51:57 The patient is Moderately Stable - Low risk of patient condition declining or worsening The patient's goals for the shift include Comfort The clinical goals for the shift include SBP <150 Over the shift, the patient did not make progress toward the following goals. Barriers to progression include . Recommendations to address these barriers include . [facility]2025-04-24 10:55:40 The patient is Moderately Stable - Low risk of patient condition declining or worsening The patient's goals for the shift include Comfort The clinical goals for the shift include SBP <150 [facility]2025-04-23 03:36:18 The patient is Moderately Stable - Low risk of patient condition declining or worsening The patient's goals for the shift include PAIN FREE The clinical goals for the shift include SBP < 150 [facility]2025-04-22 16:59:00 History of Present Illness: Chief Complaint: Patient presents with Altered Mental Status This patient presents as a code stroke via [facility]. 89yo male with pmh of CAD, COPD (no home O2 requirement), Afib (no AC), and recent subdural hematoma 4 days ago for which he was hospitalized at [facility] and discharged yesterday. He presented as a code stroke for left sided weakness and left facial droop that his daughter noticed at 15:20. Unknown last known well. EMS arrival reports BP of 118 and glucose of 130 on scene. Patient AO x 3, GCS 15 on arrival. Mild left-sided facial droop appreciated but otherwise neurologically intact. History provided by: EMS personnel and patient Patient History Past Medical History: Diagnosis Date SDH (subdural hematoma) ([facility]) 11/29/2024 No past surgical history on file. No family history on file. Social History: Tobacco Use Smoking status: Not on file Smokeless tobacco: Not on file Substance Use Topics Alcohol use: Not on file Drug use: Not on file Review of Systems: Review of Systems Physical Exam: Constitutional: Comments: Patient in no acute distress, nontoxic-appearing. Slow to respond HENT: Head: Atraumatic. Eyes: Extraocular Movements: Extraocular movements intact. Pupils: Pupils are equal, round, and reactive to light. Cardiovascular: Rate and Rhythm: Normal rate. Pulmonary: Effort: Pulmonary effort is normal. Abdominal: General: Abdomen is flat. Palpations: Abdomen is soft. Musculoskeletal: Cervical back: Normal range of motion. Skin: General: Skin is warm and dry. Neurological: Mental Status: He is alert. Comments: Left-sided facial droop, 5 out of 5 strength in the upper and lower extremities. Sensation intact throughout, patient alert and conversational. Triage Vitals: BP: 112/72, Heart Rate: 73, Resp: 18, SpO2: 97 % Last Recorded Vitals: BP: 112/72, Heart Rate: 73, Resp: 18, SpO2: 97 % Procedures Performed: Procedures ED Course : ED Course: as of 12/03/242324Dec 03, 20241720 Paged NSGY for acute on chronic SDH. They stated they will call back. [] 1722 Rads: R SDH with mass effect but no midline shift 9 mm thick. [] 1726 Discussed with NSGY. Will see [] ED Course: User Index [] Camila Peters, Diagnoses as of 12/03/242324 SDH (subdural hematoma) (HCC) Disposition: Medical Decision Making Patient presenting as a code stroke. On arrival to the hospital-primary survey intact, hemodynamically stable. Secondary survey remarkable for mild left-sided facial droop and slow responses but otherwise neurologically intact. Stroke team was consulted and at bedside on patient's arrival to the ED. CTH head and neck remarkable for a right-sided 9 mm subdural hematoma measuring. CTA w/ no LVO. EKG without evidence of STEMI or ischemia, labs with no hypoglycemia, severe metabolic derangements, and clinical picture does not suggest other stroke mimic. At this time neurosurgery was consulted given the concern for acute on chronic subdural hematoma. Patient presented with an alias and no prior records from [facility]. As such there were no CT scans to compare to at the time of presentation. Stability scan was ordered. Patient ultimately admitted to the neurological ICU. Keppra given for seizure prophylaxis.. MEDICAL DECISION MAKING Complexity of Problems Addressed High: I am concerned about a severe complexity problem which was evidenced by the differential, and associated workup to rule out the severe problem: CVA, which is a new problem for this patient as evidenced by new left-sided FD. Complexity of Data Review Category 1: (# Of Data Points) Ordered the following tests: CBC, BMP, CT head, CTA head neck and (Alternate Historian) For improved patient care, I received an additional history from EMS who states patient was discharged from [facility] 4 days prior. 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 Risk of Management (Admission) Patient to be admitted to the hospital. Amount and/or Complexity of Data Reviewed Independent Historian: EMS Labs: ordered. Radiology: ordered. ECG/medicine tests: ordered. Risk Prescription drug management. Scoring Tools NIH Stroke Scale: 3 Camila Peters DO Resident 12/04/24 1335 Cosigned by Stewart Harkins MD at 12/04/2024 2:35 PM CDT Associated attestation - Stewart Barreto MD - 12/04/2024 2:35 PM CDT Teaching Attending Attestation: The patient was seen and examined by me in the presence of, or jointly with, the resident, and I agree with the History/Exam/Medical Decision Making documented unless further documented below. Additionally, I was directly involved in the management of the patient. The pt is an 89 yo m with pmh of cad, copd no o2, afib not ac (pt with recent SDH, dc'ed from [facility] yesterday) here with c/o left sided weakness and facial droop. Pt when evaluated is in NAD, well appearing, VSS. Pt denies f/ns/hcills, alberts, dizziness, sob, cp, abd pain, n/v/d. Pt to be evaluated with c/f cva vs worsening SDH vs electrolyte/metabolic abnormalities with albs, EKG, ct imaging, stroke team consultation, NSGY consultation, bp control and reassessment. Impression: 1. SDH (subdural hematoma) (HCC) CRITICAL CARE NOTE I examined the patient: Manny Willrad, who at that time was critically ill and had a high probability of sudden significant deterioration in his condition as evident by acute neurological deficit and required my constant medical attention and the highest level of preparedness to intervene urgently. I provided 45 minutes of aggregated critical care services to this patient while he was in critical condition including: direct patient care. The reported time excludes time spent on separately reportable procedures. Stewart Harkins MD December 04, 2024 2:34 PM Stewart Harkins MD [facility]
[2024-12-12 12:32] LABS: Absolute Basophils 0.1 K/uL (0-0.5); Absolute Eosinophils 0.3 K/uL (0-0.5); Absolute Lymphocytes (CBC) 1.4 K/uL (0.7-4.9); Absolute Neutrophil 11.4 K/uL (1.8-8.0); Basophils % 0.5 % (0-1.3); Eosinophils % 2.1 % (0-4.4); Hematocrit 40.7 % (39.6-49.0); Hemoglobin 13.9 g/dL (13.6-17.9); MCH 30.8 pg (27.0-35.0); MCHC 34.1 g/dL (32.0-36.0); MCV 90.4 fL (80-100); Monocytes % 7.4 % (3.3-12.3); Platelets 501 thou/uL (152-406); Red Cell Distribution Width 13.6 % (12.1-15.2)
--- NOTE | 2024-12-12 12:37 | RAD REPORT ---
EXAM: CT brain without contrast HISTORY: Left-sided weakness. Brain bleed. COMPARISON: None TECHNIQUE: Multiple contiguous axial images were obtained and a CT of the brain without contrast. Sagittal and coronal reformats were performed. Automated exposure control, adjustment of the mA and/or kV according to patient size, and/or itera tive reconstruction. Unless otherwise specified, incidental findings do not require dedicated imaging follow-u FINDINGS: Moderate subdural hematoma is present along the right frontal, temporal and parietal cerebral convexi ties. Shift of midline structures 5 mm to the left. The thickness is approximately 9 mm. It contains low to intermediate and high density areas. The sulci within the right cerebrum are signific antly compressed Right lateral ventricle is compressed. IMPRESSION: Moderate subdural hematoma along the right cerebral convexity. Presumably it is subacute. Given the a reas of increased density a superimposed small acute bleed is a consideration. Comparison with prior CT would be helpful. Dr. Andrews at emergency room was notified at 12:24 PM on December 16, 2024
[2024-12-12 12:45] LABS: PT Prothrombin Time 13.7 SECONDS (10-13.0); PTT, Activated Partial Thromb 24.4 SECONDS (27.2-37.4); Protime INR 1.21
[2024-12-12 12:56] LABS: Anion Gap 9.5 mEq/L (5.0-15.0); Troponin High Sensitivity 41.9 pg/mL (<58.9)
[2024-12-12 12:57] LABS: Potassium 4.5 mEq/L (3.5-5.1)
--- NOTE | 2024-12-12 13:01 | ER ---
Nurse's Notes [facility] Name: Denver Romo Age: 89 yrs Sex: Male : 1935 Arrival Date: 12/12/2024 Time: 12:07 Bed 20 Private MD: Diagnosis: Traumatic subdural hemorrhage Presentation: 12/12 12:05 Chief complaint: EMS states: FOUND IN W/C AT [facility] BY STAFF UNRESPONSIVE. db HX OF STROKE 11/28 WITH SUBDURAL HEMATOMA. FOR EMS MOVED TO [facility] WITH PINPOINT PUPILS. UPON ARRIVAL TO HOSPITAL ANSWERS QUESTIONS FOLLOWS COMMANDS. Coronavirus screen: Client denies travel out of the [place] in the last 14 days. At this time, the client does not indicate any symptoms associated with coronavirus-19. Ebola Screen: Patient negative for fever greater than or equal to 101.5 degrees Fahrenheit, and additional compatible Ebola Virus Disease symptoms Patient denies exposure to infectious person. Patient denies travel to an Ebola-affected area in the 21 days before illness onset. No symptoms or risks identified at this time. Initial Sepsis Screen: Does the patient meet any 2 criteria? No. Patient's initial sepsis screen is negative. Does the patient have a suspected source of infection? No. Patient's initial sepsis screen is negative. Risk Assessment: Do you want to hurt yourself or someone else? Patient reports no desire to harm self or others. 12:05 Method Of Arrival: EMS: [facility] db 12:05 Acuity: NORA 3 db 12:05 Onset of symptoms is unknown. db 12:05 An acute neurological deficit is present. The patients blood glucose was checked before db arriving to the hospital and was found to be normal. Triage Assessment: 12:05 General: Appears in no apparent distress. comfortable, Behavior is calm, cooperative. db Neuro: Level of Consciousness is awake, alert, obeys commands. Respiratory: Airway is patent Respiratory effort is even, unlabored, Respiratory pattern is regular, symmetrical. Stroke Activation: Symptom onset < 3 hours Physician: ED Attending; Name: ; Notified At: ; Arrived At: Physician: Mid-Level Provider; Name: ; Notified At: ; Arrived At: Physician: [not used]; Name: ; Notified At: ; Arrived At: Physician: [not used]; Name: ; Notified At: ; Arrived At: Physician: [not used]; Name: ; Notified At: ; Arrived At: Historical: - Allergies: 12:51 PENICILLINS; db 12:51 Bactrim; db - PMHx: 12:51 Transient cerebral ischemia; stroke; SUBDURAL HEMATOMA; Gastroesophageal reflux db disease; Chronic obstructive lung disease; ATHEROSCLEROTIC HEART DISEASE; Dementia; EMPHYSEMA; Hypertensive disorder; HYPERLIPIDEMIA; BENIGN PROSTATIC HYPERPLASIA; CHRONIC UTI; Anxiety; - Immunization history:: Adult Immunizations unknown. - Infectious Disease History:: Denies. - Family history:: not pertinent. - Social history:: Smoking status: Patient denies any tobacco usage or history of. - Hospitalizations: : Patient was recently seen at. Screenin:43 [facility] ED Fall Risk Assessment (Adult) History of falling in the last 3 months, db including since admission Yes- single mechanical fall (1 pt) Confusion or Disorientation No (0 pts) Intoxicated or Sedated No (0 pts) Impaired Gait Yes (1 pt) Mobility Assist Device Used Yes (1 pt) Altered Elimination Yes (1 pt) Score/Fall Risk Level 3 or more points = High Risk Oriented to surroundings, Maintained a safe environment, Hourly rounding (assess needs \T\ fall precautionary measures) done. Abuse screen: Denies threats or abuse. Denies injuries from another. Nutritional screening: No deficits noted. Tuberculosis screening: No symptoms or risk factors identified. Milvia Swallow Protocol Exclusion Criteria: NPO for medical/surgical reason by provider order Yes No thin liquids due to preexisting dysphagia/baseline modified diet thickened liquids Yes (STOP, ST Cons). Assessment: 12:35 TNKase (Tenecteplase) Screening: Contraindications: Intracranial hemorrhage and its db risk factor and suspicion of subarachnoid bleed: Yes. 12:56 Reassessment: Patient appears in no apparent distress at this time. Patient and/or db family updated on plan of care and expected duration. Pain level reassessed. General: Appears in no apparent distress. comfortable. Neuro: Level of Consciousness is awake, alert, obeys commands, Oriented to. Respiratory: Airway is patent Respiratory effort is even, unlabored, Respiratory pattern is regular, symmetrical. 13:00 Reassessment: Patient appears in no apparent distress at this time. Patient and/or db family updated on plan of care and expected duration. Pain level reassessed. 13:00 Charlotte Swallow Protocol Brief Cognitive Screen What is your name? Normal, Where are you db right now? Normal, What year is it? Normal. 14:13 Reassessment: REPORT GIVEN TO MAXIM AT [facility]. db 14:23 Charlotte Swallow Protocol Exclusion Criteria: NPO for medical/surgical reason by provider db order Yes No thin liquids due to preexisting dysphagia/baseline modified diet thickened liquids Yes (STOP, ST Cons). Reassessment: Patient appears in no apparent distress at this time. Patient and/or family updated on plan of care and expected duration. Pain level reassessed. General: Appears in no apparent distress. comfortable, Behavior is calm, cooperative. Pain: Denies pain. 14:30 VAN Scoring: Arm Drift: Patients demonstrates NO arm weakness. Patient is VAN Negative. db Visual Disturbance: Field Cut: Abnormal visual agrawal noted. Provider notified of +VAN scoring. Aphasia: No aphasia noted. Neglect: No neglect noted. 14:55 Reassessment: EMS ARRIVAL FOR PATIENT TRANSPORT TO [facility]. REPORT GIVEN. db Vital Signs: 12:35 BP 129 / 61; Pulse 63; Resp 15; Temp 99.5; Pulse Ox 95% ; db 13:00 BP 117 / 51; Pulse 61; Resp 16; Pulse Ox 94% on R/A; db 13:30 BP 107 / 52; Pulse 61; Resp 16; Pulse Ox 94% on R/A; db 14:00 BP 116 / 55; Pulse 61; Resp 14; Pulse Ox 95% on R/A; db 14:30 BP 146 / 82; Pulse 68; Resp 17; Pulse Ox 100% ; db Vitals: 14:23 Cardiac Rhythm Assessment Regular. db Stefanie Coma Score: 13:00 Eye Response: spontaneous(4). Motor Response: obeys commands(6). Verbal Response: db oriented(5). Total: 15. NIH Stroke Scale Scores: 15:09 NIHSS Score: 11 db 15:12 NIHSS Score: 11 db ED Course: 12:05 Arm band placed on Patient placed in an exam room. db 12:05 Maintain EMS IV. Dressing intact. Good blood return noted. Site clean \T\ dry. Gauge \T\ db site: 20 G RFA. 12:08 Patient arrived in ED. rn 12:08 Raymond Andrews MD is Attending Physician. rn 12:25 CT Stroke Brain w/o Contrast In Process Unspecified. EDMS 12:42 Luque, Mimi, RN is Primary Nurse. db 12:43 Patient has correct armband on for positive identification. Bed in low position. Call db light in reach. Side rails up X2. Client placed on continuous cardiac and pulse oximetry monitoring. NIBP monitoring applied. threat monitoring analyst on. Pulse ox on. NIBP on. Warm blanket given. Pillow given. 12:51 Triage completed. db 12:58 Stroke CXR 1 View In Process Unspecified. EDMS 13:14 INITITED PT TRANSFER SPOKE WITH JOÃO. ty 14:41 No provider procedures requiring assistance completed. Patient transferred, IV remains db in place. 14:56 Provided Education on: TRANSFER. db Administered Medications: No medications were administered Medication: 14:23 VIS not applicable for this client. db Outcome: 13:00 ER care complete, transfer ordered by . rn 14:56 Transferred by ground EMS to [facility], Transfer form completed. X-rays sent db w/ patient. 14:56 Condition: stable 14:56 Instructed on the need for transfer, 15:22 Patient left the ED. NIH Stroke Scale - NIH Stroke Score Date: 12/12/2024 Time: 15:09 Total Score = 11 10. Dysarthria (speech clarity - read or repeat words) - 1(Mild to Moderate) 11. Extinction and Inattention (visual/tactile/auditory/spatial/personal) - 0(No abnormality) 1a. Level of Consciousness (LOC) - 0(Alert) 1b. Level of Consciousness (LOC) (Month \T\ Age) - 0(Both) 1c. LOC Commands (Open \T\ Closes Eyes/Steel Fabricator) - 0(Both) 2. Best Gaze (Lateral Gaze Paresis) - 1(Partial gaze palsy) 3. Visual Field Loss - 1(Partial hemianopia) 4. Facial Palsy - 0(Normal) 5a. Left Arm: Motor (10-second hold) - 4(No movement) 5b. Right Arm: Motor (10-second hold) - 0(No drift) 6a. Left Leg: Motor (5-second hold - always test supine) - 4(No movement) 6b. Right Leg: Motor (5-second hold - always test supine) - 0(No drift) 7. Limb Ataxia (finger/nose \T\ heel/murillo - test with eyes open) - 0(Absent) 8. Sensory Loss (pinprick arms/legs/face) - 0(Normal) 9. Best Language: Aphasia (description/naming/reading) - 0(No aphasia) Initials: db NIH Stroke Scale - NIH Stroke Score Date: 12/12/2024 Time: 15:12 Total Score = 11 10. Dysarthria (speech clarity - read or repeat words) - 1(Mild to Moderate) 11. Extinction and Inattention (visual/tactile/auditory/spatial/personal) - 0(No abnormality) 1a. Level of Consciousness (LOC) - 0(Alert) 1b. Level of Consciousness (LOC) (Month \T\ Age) - 0(Both) 1c. LOC Commands (Open \T\ Closes Eyes/Steel Fabricator) - 0(Both) 2. Best Gaze (Lateral Gaze Paresis) - 1(Partial gaze palsy) 3. Visual Field Loss - 1(Partial hemianopia) 4. Facial Palsy - 0(Normal) 5a. Left Arm: Motor (10-second hold) - 4(No movement) 5b. Right Arm: Motor (10-second hold) - 0(No drift) 6a. Left Leg: Motor (5-second hold - always test supine) - 4(No movement) 6b. Right Leg: Motor (5-second hold - always test supine) - 0(No drift) 7. Limb Ataxia (finger/nose \T\ heel/murillo - test with eyes open) - 0(Absent) 8. Sensory Loss (pinprick arms/legs/face) - 0(Normal) 9. Best Language: Aphasia (description/naming/reading) - 0(No aphasia) Initials: db Signatures: Dispatcher [employer] [facility] Raymond Andrews MD MD rn Blanchard, Shelby, RN RN Mimi Verma RN RN db Yandell, Tylor ty Corrections: (The following items were deleted from the chart) 12:25 12:24 In radiology for Head Angio+CT.[facility] 12:55 12:51 PMHx: Cerebrovascular accident; db db 14:25 12:43 [facility] ED Fall Risk Assessment (Adult) History of falling in the last 3 db months, including since admission Yes- single mechanical fall (1 pt) Confusion or Disorientation No (0 pts) Intoxicated or Sedated No (0 pts) Impaired Gait Yes (1 pt) Mobility Assist Device Used Yes (1 pt) Altered Elimination Yes (1 pt) Score/Fall Risk Level 3 or more points = High Risk Oriented to surroundings, Maintained a safe environment, Hourly rounding (assess needs \T\ fall precautionary measures) done, db 15:12 14:30 NIHSS Score: 2 db db 15:13 12:35 NIHSS Score: 2 db db 15:13 14:23 NIHSS Score: 2 db db
--- NOTE | 2024-12-12 13:01 | EDPHYS ---
Physician Documentation [facility] Name: Denver Romo Age: 89 yrs Sex: Male : 1935 Arrival Date: 12/12/2024 Time: 12:07 Bed 20 Private MD: ED Physician Raymond Andrews HPI: 12/12 12:15 This 89 yrs old Male presents to ER via Unassigned with complaints of AMS. rn 12:15 The patient presents with decreased mental status, decreased responsiveness. Onset: The rn symptoms/episode began/occurred at an unknown time. The patient has experienced similar episodes in the past. EMS [facility] for altered mental status and decreased responsiveness. half-way told EMS that but no specific time for last known normal given. Per report patient had trauma last month, approximately 2 weeks ago, diagnosed with subdural hematoma and was transferred to [place]. Return to [place] emergency room this past week and transferred to [place] once again, nothing done and discharged back to [facility]. Patient has had a previous stroke but is usually more responsive than this. they last saw him normal around breakfast time. Historical: - Allergies: 12:51 PENICILLINS; db 12:51 Bactrim; db - PMHx: 12:51 Transient cerebral ischemia; stroke; SUBDURAL HEMATOMA; Gastroesophageal reflux db disease; Chronic obstructive lung disease; ATHEROSCLEROTIC HEART DISEASE; Dementia; EMPHYSEMA; Hypertensive disorder; HYPERLIPIDEMIA; BENIGN PROSTATIC HYPERPLASIA; CHRONIC UTI; Anxiety; - Immunization history:: Adult Immunizations unknown. - Infectious Disease History:: Denies. - Family history:: not pertinent. - Social history:: Smoking status: Patient denies any tobacco usage or history of. - Hospitalizations: : Patient was recently seen at. ROS: 12:15 Unable to obtain ROS due to altered mental status, rn Exam: 12:15 Constitutional: This is a well developed, well nourished patient who is Somnolent, rn awakens to voice and painful stimuli Cardiovascular: Regular rate and rhythm. No pulse deficits. Respiratory: No increased work of breathing, no retractions or nasal flaring. Abdomen/GI: Soft, non-tender Neuro: Awakens to voice, oriented to person but not place or time. Left-sided hemiparesis. 4 out of 5 strength right upper and right lower extremity. Slurred speech present. 16:04 ECG was reviewed by the Attending Physician. rn Vital Signs: 12:35 BP 129 / 61; Pulse 63; Resp 15; Temp 99.5; Pulse Ox 95% ; db 13:00 BP 117 / 51; Pulse 61; Resp 16; Pulse Ox 94% on R/A; db 13:30 BP 107 / 52; Pulse 61; Resp 16; Pulse Ox 94% on R/A; db 14:00 BP 116 / 55; Pulse 61; Resp 14; Pulse Ox 95% on R/A; db 14:30 BP 146 / 82; Pulse 68; Resp 17; Pulse Ox 100% ; db NIH Stroke Scale Scores: 15:09 NIHSS Score: 11 db 15:12 NIHSS Score: 11 db [place] Coma Score: 13:00 Eye Response: spontaneous(4). Motor Response: obeys commands(6). Verbal Response: db oriented(5). Total: 15. MDM: 12:08 Medical Screening Exam initiated rn 12:58 Differential Diagnosis: intracranial bleed, volume depletion, Persistent subdural rn hematoma. Data reviewed: vital signs, nurses notes, radiologic studies, CT scan, and as a result, I will admit patient. Consideration of Admission/Observation Patient was admitted/placed on observation. Escalation of care including admission/observation considered. Counseling: I had a detailed discussion with the patient and/or guardian regarding the historical points, exam findings, and any diagnostic results supporting the discharge/admit diagnosis, lab results, radiology results, the need for further work-up and treatment in the hospital, the need to transfer to another facility, for higher level of care, [facility] does not immediately have the required specialist. ED course: half-way reported 9 mm subdural hematoma without shift. CT here shows 9 mm hematoma with [id number] shift. Given worsening of symptoms today we will transfer back to [facility] to see if they will intervene or observe.. 12/12 12:09 Order name: Basic Metabolic Panel; Complete Time: 13: rn 12/12 12:09 Order name: CBC with Diff; Complete Time: 12:40 rn 12/12 12:09 Order name: High Sensitivity Troponin; Complete Time: 13: rn 12/12 12:09 Order name: Protime (+inr); Complete Time: 13: rn 12/12 12:09 Order name: Ptt, Activated; Complete Time: 13: rn 12/12 12:33 Order name: Glucose, Ancillary Testing; Complete Time: 12:40 EDMS 12/12 13:39 Order name: CREATININE WHOLE BLOOD EDMS 12/12 12:09 Order name: CT Stroke Brain w/o Contrast; Complete Time: 12:40 rn 12/12 12:09 Order name: Stroke CXR 1 View; Complete Time: 13:07 rn 12/12 12:09 Order name: Accucheck; Complete Time: 12:43 rn 12/12 12:09 Order name: Cardiac monitoring; Complete Time: 12:43 rn 12/12 12:09 Order name: EKG - Nurse/Tech; Complete Time: 12:43 rn 12/12 12:09 Order name: IV Saline Lock; Complete Time: 12:43 rn 12/12 12:09 Order name: Labs collected and sent; Complete Time: 12:43 rn 12/12 12:09 Order name: NPO; Complete Time: 12:43 rn 12/12 12:09 Order name: O2 Per Protocol; Complete Time: 12:43 rn 12/12 12:09 Order name: O2 Sat Monitoring; Complete Time: 12:43 rn 12/12 12:09 Order name: Stroke Swallow Screen; Complete Time: 12:43 rn EC:04 Rate is 64 beats/min. Rhythm is regular. QRS [place] is Normal. [place] interval is normal. QRS rn interval is normal. QT interval is normal. No Q waves. T waves are Normal. No ST changes noted. Clinical impression: NSR w/ Non-specific ST/T Changes. Interpreted by me. Reviewed by me. Administered Medications: No medications were administered Disposition Summary: 12/12/24 13:00 Transfer Ordered Notes: Transfer Location: [facility] rn Reason: Higher level of care rn Condition: Stable rn Problem: an ongoing problem rn Symptoms: have worsened rn Accepting Physician: (12/12/24 15:22) ss Diagnosis - Traumatic subdural hemorrhage rn Forms: - Medication Reconciliation Form rn - SBAR form rn NIH Stroke Scale - NIH Stroke Score Date: 12/12/2024 Time: 15:09 Total Score = 11 10. Dysarthria (speech clarity - read or repeat words) - 1(Mild to Moderate) 11. Extinction and Inattention (visual/tactile/auditory/spatial/personal) - 0(No abnormality) 1a. Level of Consciousness (LOC) - 0(Alert) 1b. Level of Consciousness (LOC) (Month \T\ Age) - 0(Both) 1c. LOC Commands (Open \T\ Closes Eyes/Vitamin Manager) - 0(Both) 2. Best Gaze (Lateral Gaze Paresis) - 1(Partial gaze palsy) 3. Visual Field Loss - 1(Partial hemianopia) 4. Facial Palsy - 0(Normal) 5a. Left Arm: Motor (10-second hold) - 4(No movement) 5b. Right Arm: Motor (10-second hold) - 0(No drift) 6a. Left Leg: Motor (5-second hold - always test supine) - 4(No movement) 6b. Right Leg: Motor (5-second hold - always test supine) - 0(No drift) 7. Limb Ataxia (finger/nose \T\ heel/murillo - test with eyes open) - 0(Absent) 8. Sensory Loss (pinprick arms/legs/face) - 0(Normal) 9. Best Language: Aphasia (description/naming/reading) - 0(No aphasia) Initials: db NIH Stroke Scale - NIH Stroke Score Date: 12/12/2024 Time: 15:12 Total Score = 11 10. Dysarthria (speech clarity - read or repeat words) - 1(Mild to Moderate) 11. Extinction and Inattention (visual/tactile/auditory/spatial/personal) - 0(No abnormality) 1a. Level of Consciousness (LOC) - 0(Alert) 1b. Level of Consciousness (LOC) (Month \T\ Age) - 0(Both) 1c. LOC Commands (Open \T\ Closes Eyes/Vitamin Manager) - 0(Both) 2. Best Gaze (Lateral Gaze Paresis) - 1(Partial gaze palsy) 3. Visual Field Loss - 1(Partial hemianopia) 4. Facial Palsy - 0(Normal) 5a. Left Arm: Motor (10-second hold) - 4(No movement) 5b. Right Arm: Motor (10-second hold) - 0(No drift) 6a. Left Leg: Motor (5-second hold - always test supine) - 4(No movement) 6b. Right Leg: Motor (5-second hold - always test supine) - 0(No drift) 7. Limb Ataxia (finger/nose \T\ heel/murillo - test with eyes open) - 0(Absent) 8. Sensory Loss (pinprick arms/legs/face) - 0(Normal) 9. Best Language: Aphasia (description/naming/reading) - 0(No aphasia) Initials: db Signatures: Dispatcher [employer] EDMS Raymond Andrews MD MD rn Blanchard, Shelby, RN RN ss Mimi Luque RN RN db Corrections: (The following items were deleted from the chart) 12:10 12:10 Neck Angio+CT.RAD.BRZ ordered. EDMS EDMS 12:10 12:10 CT-STROKE BRAIN W/O CONTRAST+CT.RAD.BRZ ordered. EDMS EDMS 12:10 12:10 Chest Single View+RAD.RAD.BRZ ordered. EDMS EDMS 12:25 12:10 Head Angio+CT.RAD.BRZ ordered. EDMS EDMS 12:55 12:51 PMHx: Cerebrovascular accident; db db 12:58 12:15 Constitutional: This is a well developed, well nourished patient who is rn Somnolent, awakens to voice and painful stimuli Cardiovascular: Regular rate and rhythm. No pulse deficits. Respiratory: No increased work of breathing, no retractions or nasal flaring. Abdomen/GI: Soft, non-tender rn 15:22 13:00 rn ss
--- NOTE | 2024-12-12 13:06 | RAD REPORT ---
EXAMINATION: ONE VIEW CHEST XR CLINICAL INDICATION: AMS TECHNIQUE: Frontal chest projection is submitted. Examination is limited by patient positioning and t echnique. COMPARISON: No prior exam. FINDINGS: Mild interstitial pulmonary edema. The heart is upper limit of normal in size. No displaced fractures identified. Sternotomy noted. IMPRESSION: Mild CHF.
[2024-12-12 15:29] VITALS: TEMP 99.5
[2024-12-12 15:36] VITALS: BP 146/82; O2SAT 100
--- NOTE | 2024-12-13 16:27 | EKG ---
Test Date: 2024-12-12 Test Time: 12:40:02 Molding Machine Tender: RITO MEASUREMENT RESULTS: Intervals: Rate: 64 UT: QRSD: 84 QT: 392 QTc: 404 [place]: P: UT: QRS: 78 T: 45 INTERPRETIVE STATEMENTS: Lot of artifacts to interpret baseline rhythm, most likely sinus rhythm. Nonspecific T wave abnormality Abnormal ECG No previous ECG available for comparison Electronically Signed On 12-13-24 16:27:37 CDT by Zay Koroma
== END 2024-12-12 15:22 | disposition short-term general hospital (02) ==
LOC: ER 12:07
DX: S06.5X0A Traumatic subdural hemorrhage without loss of consciousness, initial encounter (principal); I10 Essential (primary) hypertension; R29.711 NIHSS score 11; J44.9 Chronic obstructive pulmonary disease, unspecified; E78.5 Hyperlipidemia, unspecified; Z86.73 Personal history of transient ischemic attack (TIA), and cerebral infarction without residual deficits
CPT/HCPCS: 36415; 70450; 71045; 80048; 82565; 82947; 84484; 85025; 85610; 85730; 93005; 99285